=== PATIENT | female | born 1960 | race Caucasian/White ===

== ENCOUNTER 2018-10-23 01:39 | Outpatient (CLI) | payer BC, SELFPAY ==
[2018-10-23 08:45] LABS: Hemoglobin A1C 5.6 % (4.5-6.2)
[2018-10-23 08:50] LABS: Abs Immature Grans 0.01 k/cumm (0.0-0.09); Absolute Basophil Count 0.02 k/cumm (0.0-0.2); Absolute Eosinophil Count 0.15 k/cumm (0.0-0.7); Absolute Lymphocyte Count 1.31 k/cumm (1.2-3.4); Absolute Monocyte Count 0.26 k/cumm (0.11-0.7); Absolute Neutrophil Count 2.44 k/cumm (1.2-6.7); Basophils % 0.5; Eosinophils % 3.6; HCT 43.5 % (36.0-46.0); HGB 14.9 g/dL (12.0-15.5); Immature Grans % 0.2; Lymphocytes % 31.3; Mean Corp. HGB Concentration 34.3 g/dL (32.0-36.0); Mean Corpuscular Hemoglobin 29.9 pg (27.0-33.0); Mean Corpuscular Volume 87.3 fL (80-95); Mean Platelet Volume 10.7 fL (8.0-11.0); Monocytes % 6.2; Neutrophils % 58.2; Platelet Count 168 x1000/uL (130-400); RBC 4.98 m/cumm (4.00-5.20); RBC Distribution Width 13.4 % (11.7-14.6); White Blood Cell Count 4.19 k/cumm (4.4-10.8)
[2018-10-23 10:04] LABS: ALT 44 U/L (12-78); AST 19 U/L (15-37); Albumin 4.2 g/dL (3.4-5.0); Alkaline Phosphatase 73 U/L (46-116); BUN 30 mg/dL (7-18); Bilirubin, Total 0.5 mg/dL (0.2-1.0); CREATININE 0.85 mg/dL (0.55-1.02); Chloride 104 mmol/L (98-107); Glucose 108 mg/dL (70-100); Potassium 4.3 mmol/L (3.5-5.1); Sodium 140 mmol/L (136-145); TSH (W/Ref FT4) 2.37 uIU/mL (0.358-3.74); Total Protein 7.4 g/dL (6.4-8.2)
[2018-10-25 05:22] LABS: Vitamin D 25 Total 83.3 ng/ml (30-100)
== END 2018-10-23 01:59 ==
PROVIDERS: PCP Family Medicine; Visit Provider Family Medicine
DX: R63.5 Abnormal weight gain (principal); R53.83 Other fatigue; E78.5 Hyperlipidemia, unspecified; Z00.00 Encounter for general adult medical examination without abnormal findings
CPT/HCPCS: 36415; 80053; 82306; 83036; 84443; 85025

== ENCOUNTER 2018-11-20 00:18 | Outpatient (CLI) | payer BC, SELFPAY ==
--- NOTE | 2018-11-20 07:57 | DI.MAMMO_ITS ---
SYMPTOM/DIAGNOSIS: SCREENING, Z12.31 MAMMOGRAMS; Mammograms were interpreted according to the usual protocol including computer analysis with CAD system, tomosynthesis and C view imaging. Comparison is made with prior examinations. Breast density, category B. No suspicious masses or microcalcifications are seen. There has been no significant change compared to the prior examinations. IMPRESSION: No evidence for malignancy, category 1. Yearly mammography is recommended. [facility] ASSESSMENT OF FINDINGS: Negative. Category 1. Patient will receive a letter notifying them of these results. BI-RADS category B. There are scattered areas of fibroglandular density.
== END 2018-11-20 00:38 ==
PROVIDERS: PCP Family Medicine; Visit Provider Family Medicine
DX: Z12.31 Encounter for screening mammogram for malignant neoplasm of breast (principal)
CPT/HCPCS: 77063; 77067

== ENCOUNTER 2020-08-27 15:21 | Outpatient (REF) | payer BC, SELFPAY ==
[2020-08-28 13:51] LABS: COVID-19 RT-PCR UVMMC Result Negative (Negative)
== END 2020-08-27 15:22 | disposition home or self-care (01) ==
LOC: NCHCN 15:21
PROVIDERS: PCP Family Medicine; Visit Provider Family Medicine
DX: Z20.822 Contact with and (suspected) exposure to COVID-19 (principal)
CPT/HCPCS: U0003

== ENCOUNTER 2020-11-02 19:12 | Outpatient (REF) | payer BC, SELFPAY ==
[2020-11-04 12:30] LABS: Lyme Ab w Rflx to Lyme Confirm Negative (Negative)
[2020-11-04 22:57] LABS: Anaplasma phagocytophilum Negative (Negative); B. miyamotoi PCR Negative (Negative); Babesia divergens/MO-1 Negative (Negative); Babesia duncani Negative (Negative); Babesia microti Negative (Negative); Ehrlichia chaffeensis Negative (Negative); Ehrlichia ewingii/canis Negative (Negative); Ehrlichia muris eauclairensis Negative (Negative)
== END 2020-11-02 19:13 | disposition home or self-care (01) ==
LOC: NCHCN 19:12
PROVIDERS: PCP Family Medicine; Visit Provider Family Medicine
DX: W57.XXXA Bitten or stung by nonvenomous insect and other nonvenomous arthropods, initial encounter (principal); T14.8XXA Other injury of unspecified body region, initial encounter
CPT/HCPCS: 87798; 86618

== ENCOUNTER 2022-02-02 19:01 | Outpatient (REF) | payer BC, SELFPAY ==
[2022-02-02 18:20] LABS: ALT 35 U/L (14-59); AST 20 U/L (15-37); Albumin 4.3 g/dL (3.4-5.0); Alkaline Phosphatase 72 U/L (46-116); Anion Gap 9.8 mmol/L (3-11); BUN 23 mg/dL (7-18); Bilirubin, Total 0.7 mg/dL (0.2-1.0); CO2 27.2 mmol/L (21.0-32.0); CREATININE 0.7 mg/dL (0.55-1.02); Calcium 9.2 mg/dL (8.5-10.1); Calculated LDL 177 mg/dL (<100); Chloride 107 mmol/L (98-107); Cholesterol 292 mg/dL (<200); Glucose 115 mg/dL (74-106); HDL Cholesterol 97 mg/dL (40-60); Potassium 4.4 mmol/L (3.5-5.1); Sodium 144 mmol/L (136-145); Total Protein 7.2 g/dL (6.4-8.2); Triglyceride 93 mg/dL (<150)
[2022-02-02 18:22] LABS: Hemoglobin A1C 5.6 % (<5.7)
[2022-02-03 04:49] LABS: Vitamin D 25 Total 65.6 ng/mL (30-100)
== END 2022-02-02 19:02 | disposition home or self-care (01) ==
LOC: NCHCN 19:01
PROVIDERS: PCP Family Medicine; Visit Provider Family Medicine
DX: Z00.00 Encounter for general adult medical examination without abnormal findings (principal); R53.83 Other fatigue; E78.5 Hyperlipidemia, unspecified
CPT/HCPCS: 80053; 80061; 82306; 83036

== ENCOUNTER → 2022-03-25 00:34 | Outpatient (CLI) | payer BC, SELFPAY ==
--- NOTE | 2022-03-25 07:30 | DI.MAMMO_ITS ---
Exam(s) MAMMO SCREENING EXAM: MAMMO SCREENING CLINICAL HISTORY: SCREENING, Z12.31 TECHNIQUE: Mammograms were interpreted according to the usual protocol including computer analysis w [email or web address] CAD system, tomosynthesis and C-view imaging. COMPARISON: FINDINGS: The breasts are of moderate density with fairly symmetrical distribution of fibroglandular tissue. N o dominant mass or clumped microcalcification is identified in either breast. Current examination is compared with previous examinations including October 2018 and there has been no gross interval change i n appearance in comparison with the prior studies. IMPRESSION: No specific evidence of malignancy at this time. Routine screening examinations are suggested at ye khai intervals in this age group according to the ACS ACR guidelines. BI-RADS Category 1 - Negative Breast Density - Category B - Scattered areas of fibroglandular density
== END ==
PROVIDERS: PCP Family Medicine; Visit Provider Family Medicine
DX: Z12.31 Encounter for screening mammogram for malignant neoplasm of breast (principal)
CPT/HCPCS: 77063; 77067

== ENCOUNTER 2022-12-08 08:20 | Day surgery (SDC) | payer BC, SELFPAY ==
--- NOTE | 2022-12-07 19:20 | W.PM.DSUDISC ---
Date of service: 12/08/22 Time of Service: 11:54 Discharge Plan Disposition Patient Disposition: Home Condition: Good Discharge Details Reason For Visit: Screening colonoscopy Attending Provider: Anthony Blackmon Primary Care Provider: Ingrid Avalos Home Meds and New Rx's Prescriptions: Continued L-Glutamine 500 mg capsule 500 mg PO DAILY chromium picolinate 200 mcg tablet 200 mcg PO DAILY vitamin B complex [B Complex-Vitamin B12] Tablet 1 tab PO DAILY cod liver oil Capsule 1 cap PO DAILY magnesium oxide 500 mg capsule 500 mg PO DAILY Frank's wort 300 mg capsule 300 mg PO DAILY ashwagandha root extract 300 mg capsule 300 mg PO DAILY evening primrose oil 500 mg capsule 500 mg PO TID Rx Instructions: give with meal/snack 5-hydroxytryptophan (5-HTP) [5-HTP] 100 mg capsule 200 mg PO BID latanoprost 2.5 ML drops 1 drp OU DAILY brimonidine-timolol [Combigan] 5 ML drops 1 drp OD BID Discontinued bisacodyl [Dulcolax (bisacodyl)] 5 mg tablet,delayed release (DR/EC) 5 mg PO ONCE Qty: 4 0RF Rx Instructions: Take per colonoscopy instructions provided by ordering providers office polyethylene glycol 3350 17 gram/dose powder 17 g PO ONCE Qty: 238 0RF Rx Instructions: Take per colonoscopy instructions provided by ordering providers office Discharge Instructions Additional Instructions: Carmelita, we were able to complete your colonoscopy today without any problems. The quality of the prep was excellent. We had great visualization. I did not see any signs of any abnormalities. You should consider another colonoscopy in 10 years 1. If tolerated, consume a soft, low fiber diet for 1-2 days. 2[address] Do not drive, drink alcohol, operate machinery, make critical decisions, or do activities that require coordination or balance for 24 hours. 3. Because air was put into your colon during the procedure, expelling air from your rectum (passing gas or farting) is normal. 4. You may not have a bowel movement for 1-3 days because of the colonoscopy prep. This is normal. 5. Go directly to the emergency room if you notice any of the following: Develop chills (warm to touch), or if you have a thermometer and your temperature is above 101 Difficulty breathing or difficultly swallowing Persistent vomiting Severe abdominal pain, other than gas cramps Severe chest pain Black, tarry stools Any bleeding ? exceeding one tablespoon 6. Call your physician if the site where your intravenous was started becomes red, swollen, painful, and warm to touch. 7. Your physician has reviewed your pre-procedure medications. Please continue to take those medications as previously ordered. You will be given specific information/education regarding any changes to your medications before leaving. Activity:: Activity as Tolerated Diet:: As Tolerated Discharge Orders Discharge Orders: Discharge Order (Routine); Ordered 12/07/22 Ordered By: Anthony Blackmon DS: Diagnosis Discharge Diagnosis (1) Screening for colon cancer: Status: Acute Asessment and Plan: Negative screening colonoscopy
--- NOTE | 2022-12-07 19:22 | W.COLOREPORT ---
Date of service: 12/08/22 Time of Service: 11:55 Colonoscopy Report Date of procedure: 12/08/22 Pre-op diagnosis general: Screening colonoscopy Post-op diagnosis procedure note: other (Negative screening colonoscopy) Procedure: Colonoscopy Surgeon: Anthony Blackmon Anesthesia Type: General:No Airway Estimated blood loss (mL): 0 Pathology: none sent Complications: None Disposition: same day Indications: Reena is a 62 year old woman who needs a screening colonoscopy Prep: Miralax/Dulcolax Procedure Start Time: 11:24 Procedure End Time: 11:39 Retraction Time: 11 Findings: Negative screening colonoscopy Procedure Description: After the induction of monitored anesthetic care, and with the patient in left lateral decubitus position, I began by performing an external anorectal exam.? Perineum and skin were normal, as was the anal verge.? There were no external hemorrhoids.? Next, I performed a digital rectal exam.? I did not appreciate any abnormal findings.? Next, I advanced a colonoscope into the rectal vault.? I performed retroflexion.? This appeared normal.? Using insufflation, I then advanced the colonoscope beyond the rectal folds and into the sigmoid colon before advancing towards the cecum.? The quality of the prep was excellent.? The scope was noted to be in the cecum by identification of the ileocecal valve and appendiceal orifice.? I then began withdrawing the colonoscope using repeated irrigation as necessary for full evaluation of the colonic mucosa. ?Once the scope was withdrawn to the level of the rectum, great care was taken to examine portions of the rectal folds.? I did not see any abnormalities during the colonoscopy. Finally, the scope was withdrawn and the patient was brought to the same-day surgery recovery unit as the anesthetic wore off. ?The findings and instructions were shared with the patient prior to discharge.
[2022-12-08 09:34] VITALS: BP 133/86; PULSE 91; RESP 18; TEMP 36.3; O2SAT 98
--- NOTE | 2022-12-08 09:39 | W.ANESPRE ---
General Info Date of Service Date Performed: 12/08/22 Height: 5 ft 6 in Weight: 81.647 kg Body Mass Index (BMI): 29.0 Surgical Procedure: Operation Date: 12/08/22 09:50 Proposed Procedure Side Surgeon vinayak Blackmon MD Meds Allergies and Home Medications Allergies Allergy/AdvReac Type Severity Reaction Status Date / Time No Known Allergies Allergy Unverified 12/07/22 11:20 Home Medication Medication Instructions Recorded brimonidine 0.2 %-timolol 0.5 % 1 drp OD BID 12/02/13 eye drops (Combigan) latanoprost 0.005 % eye drops 1 drp OU DAILY 12/02/13 5-hydroxytryptophan (5-HTP) 100 mg 200 mg PO BID 04/26/22 capsule (5-HTP) [place]'s wort 300 mg capsule 300 mg PO DAILY 04/26/22 ashwagandha root extract 300 mg 300 mg PO DAILY 04/26/22 capsule chromium picolinate 200 mcg tablet 200 mcg PO DAILY 04/26/22 cod liver oil 1 cap PO DAILY 04/26/22 evening primrose oil 500 mg capsule 500 mg PO TID 04/26/22 glutamine 500 mg capsule 500 mg PO DAILY 04/26/22 (L-Glutamine) magnesium oxide 500 mg capsule 500 mg PO DAILY 04/26/22 vitamin B complex (B 1 tab PO DAILY 04/26/22 Complex-Vitamin B12 tablet) Current Visit Medications: Current Medications Generic Name Dose Route Start Last Admin Trade Name Freq PRN Reason Stop Dose Admin Hyoscyamine Sulfate 0.125 mg 12/07/22 19:23 Hyoscyamine 0.125 Mg Sl/Oral/Chew SL 01/06/23 19:22 DIRECTED PRN Ringer's Solution 1,000 mls @ 80 mls/hr 12/08/22 06:00 IV 01/06/23 23:59 INFUSION MELIDA IV Miscellaneous Supplies 1 each 12/08/22 06:00 Iv Access IV 01/06/23 23:59 DIRECTED MELIDA Ondansetron HCl 4 mg 12/07/22 19:23 Ondansetron 4 Mg/2 Ml Vial IVP 01/06/23 19:22 Q4H PRN PRN Nausea / Vomiting Sodium Chloride 0 ml 12/08/22 06:00 Normal Saline Flush 10 Ml Syr IV 01/06/23 23:59 PRN PRN Sodium Chloride 0 ml 12/08/22 06:00 Normal Saline 10 Ml Vial IJ 01/06/23 23:59 DIRECTED PRN Sterile Water 0 ml 12/08/22 06:00 Water,Injection,Sterile 10 Ml Vial IJ 01/06/23 23:59 DIRECTED PRN PFSH Active Problems Active Problems: Problem Status Onset Code Glaucoma H40.9 Fatigue R53.83 Screening for colon cancer Z12.11 Medical History Medical History Hyperlipidemia Multiple nevi Sebaceous cyst Stressful life event affecting family Urge incontinence Weight gain Surgical History Surgical History H/O: hysterectomy History of colonoscopy (~2011) Tobacco Smoking/Tobacco Use Status: Never Alcohol Alcohol Intake: never Substance Use Substance use: Never Substance use type: does not use Vital Signs and Lab Results Vital Signs Most Recent Vital Signs in EMR: Most Recent Vital Signs Temp Pulse Resp BP Pulse Ox 36.3 C L 91 H 18 133/86 98 12/08/22 09:34 12/08/22 09:34 12/08/22 09:34 12/08/22 09:34 12/08/22 09:34 Lab Results Blood Type / Crossmatch: No Data to Display Complete Blood Count: No Data to Display Complete Metabolic Panel: No Data to Display Liver Function Panel: No Data to Display Coagulation Panel: No Data to Display Cardiac Panel: No Data to Display Arterial Blood Gas: No Data to Display Venous Blood Gas: No Data to Display Pancreas Panel: No Data to Display Thyroid Panel: No Data to Display Infectious Disease: No Data to Display Blood Cultures: No Data to Display Toxicology Panel: No Data to Display Anesthesia Assessment and Plan Anesthesia History Personal History: No History of Anesthesia Complications Family History: No Family History of Anesthesia Complications Exercise Tolerance Exercise Tolerance: Metabolic Equivalents>4 Cardiac & Pulmonary Exam Cardiac Exam: Normal S1/S2 Heart Sounds Pulmonary Exam: Clear Bilateral Breath Sounds Implantable Cardiac Device Does patient have a Pacemaker or an ICD?: No Airway Exam Known Difficult Airway: No Mallampati Class: 3 Mouth Opening: Normal (> 3cm) Thyromental Distance: Greater than 3 cm Neck Range of Motion: Full ROM Neck Circumference: Normal Teeth Condition: Normal Dentition ASA Classification ASA Score: ASA 2 Emergency Case?: No NPO Status NPO Status: NPO Clears >2 hours, Solids >8 hours Anesthesia Plan Resuscitation Status: Full Code Anesthesia Technique: General Anesthesia Airway Planned: Natural Airway Monitors Used: Standard Monitors Preoperative Comments:: 62 yo female for colo. Sig PMHx: never smoker, glaucoma,
[2022-12-08 09:44] VITALS: BMI 29.0
[2022-12-08] MEDS: Lactated Ringers 1,000 ML 80 ML IV (09:56)
[2022-12-08 11:52] VITALS: BP 142/112; PULSE 77; RESP 16; TEMP 36.1; O2SAT 98
[2022-12-08 12:35] VITALS: BP 140/80; PULSE 82; RESP 18; TEMP 36.4; O2SAT 98
--- NOTE | 2022-12-08 12:40 | W.ANESPOSTOP ---
Postoperative Evaluation Date, Time and Location Date Performed: 12/08/22 Time Performed: 11:59 Patient Location: Day Surgery Unit Vital Signs Most Recent Imported Vital Signs: Most Recent Vital Signs Temp Pulse Resp BP Pulse Ox 36.1 C L 77 16 142/112 H 98 12/08/22 11:52 12/08/22 11:52 12/08/22 11:52 12/08/22 11:52 12/08/22 11:52 Pain Score Most Recent Pain Score: Most Recent Pain Score Pain Level 0 12/08/22 11:52 Assessment Mental Status: Awake (Alert & Oriented to Patient Baseline) Airway and Respiratory Function: Patent airway with normal (patient baseline) respiratory exam Cardiovascular Function: Hemodynamically Stable Hydration Status: Adequately Hydrated Nausea & Vomiting: No Nausea or Vomiting Pain: Pt. Denies Any Pain Peripheral Nerve Block: Patient did not receive a nerve block
[2022-12-08] MEDS: Hyoscyamine 0.125 MG SL/ORAL/CHEW SL (12:41)
== END 2022-12-08 13:00 | disposition home or self-care (01) ==
PROVIDERS: PCP Family Medicine; Visit Provider Surgery
PROC: 0DJD8ZZ Inspection of Lower Intestinal Tract, Via Natural or Artificial Opening Endoscopic (ICD-10-PCS; CPT 45378; principal; 2022-12-08 09:45)
DX: Z12.11 Encounter for screening for malignant neoplasm of colon (principal); E78.5 Hyperlipidemia, unspecified; H40.9 Unspecified glaucoma
CPT/HCPCS: 45378; J2001; J3490

== ENCOUNTER 2023-07-18 06:49 | Emergency (ER) | payer BC, SELFPAY ==
[2023-07-18] VITALS (30 sets, daily range): BP systolic 111–143; BP diastolic 55–96; PULSE 55–105; RESP 11–24; TEMP 36.9; O2SAT 98–100
[2023-07-18] MEDS: Ondansetron O.D.T. 4 MG TABEF (07:07)
--- NOTE | 2023-07-18 07:15 | RT.EKG_ITS ---
APPROVED REPORT Exam: Resting ECG Reason for Exam: lightheaded Patient Location: E HR:68 bpm ECG Measurements Heart Rate 68 AXIS DE 223 P -48 QRSd 85 QRS 61 QT 433 T 56 QTc 462 Conclusion Sinus or ectopic atrial rhythm...P axis (-45,135) Prolonged DE interval...DE >220, V-rate 50- 90 sinus rhythm, normal axis, normal intervals, non ischemic
--- NOTE | 2023-07-18 07:22 | ED.GENADUL_ITS ---
HPI General Date/Time Provider Initiated Documentation: 07/18/23 07:04 . HPI Narrative: 63-year-old female presents with chills lightheadedness and nausea after having a large loose bowel movement this morning, endorses that her bowel movement was very dark. Denies chest pain shortness of breath cough fevers or vomiting. No abdominal pain. Recent screening colonoscopy negative. Has been under a lot of stress socially, safe at home lives with teenage daughter. Related Data Home Medications Medication Instructions Recorded Confirmed brimonidine 0.2 %-timolol 0.5 % 1 drp OD BID 12/02/13 07/18/23 eye drops (Combigan) latanoprost 0.005 % eye drops 1 drp OU DAILY 12/02/13 07/18/23 5-hydroxytryptophan (5-HTP) 100 mg 200 mg PO BID 04/26/22 12/08/22 capsule (5-HTP) Frank's wort 300 mg capsule 300 mg PO DAILY 04/26/22 12/08/22 ashwagandha root extract 300 mg 300 mg PO DAILY 04/26/22 12/08/22 capsule chromium picolinate 200 mcg tablet 200 mcg PO DAILY 04/26/22 12/08/22 cod liver oil 1 cap PO DAILY 04/26/22 12/08/22 evening primrose oil 500 mg capsule 500 mg PO TID 04/26/22 12/08/22 glutamine 500 mg capsule 500 mg PO DAILY 04/26/22 12/08/22 (L-Glutamine) magnesium oxide 500 mg capsule 500 mg PO DAILY 04/26/22 12/08/22 vitamin B complex (B 1 tab PO DAILY 04/26/22 12/08/22 Complex-Vitamin B12 tablet) Allergies Allergy/AdvReac Type Severity Reaction Status Date / Time No Known Allergies Allergy Unverified 07/18/23 07:00 General Stated Complaint: Nausea/Vomit/Diar CRIS: 3 Review of Systems Narrative: Review of Systems Constitutional: Fatigue, lightheadedness Eyes: negative ENT: negative Cardiovascular: negative Respiratory: negative Gastrointestinal: Nausea, diarrhea, dark stool : negative Musculoskeletal: negative Skin: negative Neurologic: negative Psych: negative Exam Narrative Exam Narrative: Physical Examination General: Fatigued appearing HEENT: normocephalic, atraumatic; PERRL, EOM intact, dry oral mucosa, slight conjunctival pallor Neck: supple, trachea midline; full ROM Chest: normal to inspection Respiratory: normal respiratory effort, speaking in full sentences, clear to auscultation, no wheezing, rales or rhonchi Cardiac: regular rate, regular rhythm, S1S2 intact, no murmurs rubs or gallops GI: abdomen soft, non-tender, non-distended; no palpable mass or hepatosplenomegaly Skin: Pale, no lesions, rashes or trauma appreciated Neuro: AAOx3, normal speech, moving all extremities Psych: Appropriate mood and affect Course Vital Signs Vital signs: Vital Signs Temperature 36.9 C 07/18/23 06:56 Pulse 56 L 07/18/23 06:56 Respiratory Rate 16 07/18/23 06:56 Blood Pressure 117/57 L 07/18/23 06:56 Pulse Oximetry 100 07/18/23 06:56 Temperature 36.9 C 07/18/23 06:56 Temperature Source Oral 07/18/23 06:56 Pulse 56 L 07/18/23 06:56 Respiratory Rate 16 07/18/23 06:56 Blood Pressure 117/57 L 07/18/23 06:56 Blood Pressure Position Sitting 07/18/23 06:56 Pulse Oximetry 100 07/18/23 06:56 Oxygen Delivery Method Room Air 07/18/23 06:56 Oxygen Flow Rate 0 07/18/23 06:56 Medical Decision Making 64-year-old female presents with lightheadedness and nausea after having a large loose dark bowel movement at home, no abdominal pain, afebrile, nonperitoneal, appears fatigued, slightly pale conjunctiva dry oral mucosa, pallor, normotensive, slight bradycardia, consider viral gastroenteritis versus viral syndrome such as influenza or COVID-19, must also consider vasovagal episode in the setting of large bowel movement, given description of dark loose stool consider upper GI bleed, must also consider electrolyte derangement versus dehydration versus anemia. Low suspicion for pneumonia. Must also consider colitis versus enteritis versus appendicitis versus diverticulitis versus less likely UTI given no urinary symptoms. Low suspicion for ACS PE or aortic pathology given history and physical. Will place line provide fluids antiemetics, pantoprazole and famotidine, will perform bedside guaiac, CT abdomen pelvis with contrast chest x-ray flu COVID swab EKG close reassessment of symptoms. 19: 34 patient resting notably no acute distress. Guaiac negative. External hemorrhoid nonthrombosed nonbleeding on examination. 10: 25 patient resting comfortably feeling much better after fluids and meds. Labs and imaging largely unremarkable. Home care instructions return precautions given. Consider resolving mild dehydration versus vasovagal episode Quality:SDOH Health Related Social Needs: No Data to Display PFSH All Active Problems (Updated 07/18/23 @ 10:26 by Chun Stewart MD) Dehydration (Acute) Glaucoma (Chronic) Fatigue (Acute) Screening for colon cancer (Acute) Medical History Hyperlipidemia Multiple nevi Weight gain Urge incontinence Sebaceous cyst Stressful life event affecting family Surgical History (Updated 12/08/22 @ 15:46 by Pamella Mcfdaden) Normal colonoscopy (~12/08/22) History of colonoscopy (~2011) H/O: hysterectomy Social History Smoking/Tobacco Use Status: Never Smoking risk assessment performed?: Yes Alcohol Intake: never Drug use: Never Substance use type: does not use Housing: house Do you feel safe at home: Yes Do you feel safe in your relationship?: Yes Discharge Plan Disposition Patient Disposition: Home Condition: Improving Discharge Details Chief Complaint: Nausea/Vomit/Diar Clinical Impression: Dehydration Primary Care Provider: Ingrid Avalos ED Provider: Chun Stewart Home Meds and New Rx's Prescriptions: No Action L-Glutamine 500 mg capsule 500 mg PO DAILY chromium picolinate 200 mcg tablet 200 mcg PO DAILY vitamin B complex [B Complex-Vitamin B12] Tablet 1 tab PO DAILY cod liver oil Capsule 1 cap PO DAILY magnesium oxide 500 mg capsule 500 mg PO DAILY Frank's wort 300 mg capsule 300 mg PO DAILY ashwagandha root extract 300 mg capsule 300 mg PO DAILY evening primrose oil 500 mg capsule 500 mg PO TID Rx Instructions: give with meal/snack 5-hydroxytryptophan (5-HTP) [5-HTP] 100 mg capsule 200 mg PO BID latanoprost 2.5 ML drops 1 drp OU DAILY brimonidine-timolol [Combigan] 5 ML drops 1 drp OD BID Discharge Instructions Instructions: Dehydration (ED)
[2023-07-18 07:44] LABS: Abs Immature Grans 0.03 10^3/uL (0.0-0.06); Absolute Basophil Count 0.05 10^3/uL (0.0-0.2); Absolute Eosinophil Count 0.06 10^3/uL (0.0-0.7); Absolute Lymphocyte Count 1.05 10^3/uL (1.2-3.4); Absolute Monocyte Count 0.36 10^3/uL (0.1-0.8); Absolute Neutrophil Count 8.29 10^3/uL (1.2-6.7); Basophils % 0.5; Eosinophils % 0.6; HCT 45.1 % (36.0-46.0); HGB 15.5 g/dL (11.2-15.7); Immature Grans % 0.3; Lymphocytes % 10.7; MCH 30.3 pg (27.0-33.0); MCHC 34.4 % (32.0-36.0); MCV 88 fL (80-95); MPV 9.9 fL (8.0-11.0); Monocytes % 3.7; Neutrophils % 84.2; Platelet Count 194 10^3/uL (130-400); RBC 5.11 10^6/uL (3.93-5.22); RDW 12.5 % (11.7-14.6); RDW-SD 40.4 fL; WBC 9.84 10^3/uL (4.4-10.8)
[2023-07-18] MEDS: Normal Saline 1,000 ML 1000 ML IV (07:52)
[2023-07-18] MEDS: Famotidine 20 MG/2 ML VIAL IVP (07:53)
[2023-07-18] MEDS: Pantoprazole 40 MG VIAL IVP (07:53)
[2023-07-18 08:04] LABS: ALT 37 U/L (14-59); AST 14 U/L (15-37); Albumin 4.3 g/dL (3.4-5.0); Alkaline Phosphatase 68 U/L (46-116); Anion Gap 10.7 mmol/L (3-11); BUN 25 mg/dL (7-18); Bilirubin, Total 0.5 mg/dL (0.2-1.0); CO2 26.3 mmol/L (21.0-32.0); CREATININE 0.9 mg/dL (0.55-1.02); Calcium 9.4 mg/dL (8.5-10.1); Chloride 104 mmol/L (98-107); Estimated GFR 72.28 (mL/min/1.73m2); Glucose 145 mg/dL (74-106); Lipase 40 U/L (16-77); Potassium 3.7 mmol/L (3.5-5.1); Sodium 141 mmol/L (136-145); Total Protein 7.9 g/dL (6.4-8.2)
[2023-07-18 08:24] LABS: PTT Activated 20.1 sec (23.6-32.8); Prothrombin Time 10.5 sec (9.1-11.1)
[2023-07-18] MEDS: Normal Saline - Diluent 50 ML VIAL IJ (08:35)
[2023-07-18] MEDS: Omnipaque 350 MG/ML 500 ML BTL-Imaging package 100 ML IJ (08:37)
--- NOTE | 2023-07-18 08:45 | DI.CT_ITS ---
Exam(s) CT ABDOMEN PELVIS W EXAM: CT ABDOMEN PELVIS W CLINICAL HISTORY: diarrhea, lightheaded, nausea TECHNIQUE: Imaging Protocol: Axial computed tomography images with coronal and sagittal reformatted images were created and reviewed CONTRAST MATERIAL: Intravenous: Omnipaque 350 Contrast volume:100 mL Oral: No COMPARISON: There are no priors for comparison. FINDINGS: ABDOMEN: Lung Bases: Normal where visualized. Liver: Normal density. No measurable mass. Portal, Superior Mesenteric, and Splenic Veins: Unremarkable. Gallbladder and Biliary Tract: No radiodense calculus or dilation. Pancreas: Normal density, no abnormal calcifications or inflammatory process. Spleen: Normal. Adrenals: No masses seen. Kidneys: Normal size, contour and axis. No radiodense stones or obstructive uropathy. No masses seen. Abdominal Aorta: Abdominal portion non-dilated. Atherosclerosis. Bowel: No obstruction or bowel wall thickening. There is no evidence of appendicitis. Peritoneal Cavity: No ascites, collection or mesenteric inflammatory response. No free air. Lymph Nodes: Within normal limits. Bones: Within normal limits for the patient's age. There is a bone island in the right iliac bone. Soft Tissues: Unremarkable. PELVIS: Bladder: Symmetric distention, no gross wall thickening. Reproductive Organs: Status post hysterectomy. Lymph Nodes: Within normal limits. Bones: Within normal limits for the patient's age. IMPRESSION: 1. No acute abdominal pelvic process to account for the symptoms. 2. Findings were discussed with the emergency department at 9:28 a.m. on 07/18/2023. RADIATION DOSE DELIVERED: 1,044.57mGy.cm Total DLP DATA REPOSITORY: All CT scans at this facility are submitted to the National Radiology Data Registry (NRDR) Dose Index Registry (DIR) with the [employer] (A[employer]). RADIATION OPTIMIZATION: All CT scans at this facility use at least one of these dose optimization te chniques: automated exposure control; mA and/or kV adjustment per patient size (includes targeted exa ms where dose is matched to clinical indication); or iterative reconstruction.
--- NOTE | 2023-07-18 08:59 | DI.RAD_ITS ---
Exam(s) XR CHEST 2V PA LATERAL EXAM: XR CHEST 2V PA LATERAL CLINICAL HISTORY: fatigue, lightheaded, nausea TECHNIQUE: 2D digital imaging was performed of the chest. Two images were obtained. PA and lateral views were obtained. COMPARISON: CR CHEST 2 VIEWS PA,LAT from 02/09/2012 FINDINGS: MEDIASTINUM: Normal. HEART: Normal. PULMONARY VASCULATURE: Normal. LUNGS: Clear. PLEURAL SPACE: No pleural effusion or pneumothorax. BONE:Within normal limits for the patient's age. OTHER FINDINGS:Normal. IMPRESSION: No acute pulmonary findings. DATA REPOSITORY: RADIATION DOSE DELIVERED:
[2023-07-18 10:02] LABS: Bilirubin Negative (Negative); Blood Negative (Negative); Clarity Clear (Clear); Glucose Negative (Negative); Ketones Negative (Negative); Leukocyte Esterase Negative (Negative); Nitrite Negative (Negative); Specific Gravity <= 1.005 (1.005-1.025); Urobilinogen 0.2 mg/dL (Up to 0.2); pH 5.5 (5-8)
== END 2023-07-18 10:43 | disposition home or self-care (01) ==
PROVIDERS: Emergency Provider Emergency Medicine; PCP Family Medicine
DX: R68.83 Chills (without fever) (principal); R11.10 Vomiting, unspecified; R53.83 Other fatigue; E86.0 Dehydration; Z11.52 Encounter for screening for COVID-19
CPT/HCPCS: 80053; 83690; 86850; 86900; 86901; 87426; 93005; 96361; 96374; 96375; 99285; 71046; 74177; 81003; 85025; 85610; 85730; 93010; 99284; J2470

== ENCOUNTER 2023-10-29 10:55 | Emergency (ER) | payer BC, SELFPAY ==
[2023-10-29 10:56] VITALS: BP 100/82; PULSE 98; RESP 15; TEMP 36.3; O2SAT 99
--- NOTE | 2023-10-29 11:00 | DI.RAD_ITS ---
Exam(s) XR FOOT RT COMPLETE EXAM: XR FOOT RT COMPLETE CLINICAL HISTORY: pain s/p fall 2 days ago. TECHNIQUE: 2D digital imaging was performed. Three views. COMPARISON: No exams were available for comparison FINDINGS: BONES: Mildly displaced fracture noted at the base of the 5th metatarsal. Fracture extends to the ar ticular surface however there is no significant widening. No additional fractures. No bony destruct musa lesion is seen. Heel spurs. JOINTS: No dislocation present. SOFT TISSUE: Swelling. IMPRESSION: Mildly displaced fracture at the base of the 5th metatarsal. DATA REPOSITORY: RADIATION DOSE DELIVERED:
--- NOTE | 2023-10-29 11:00 | DI.RAD_ITS ---
Exam(s) XR ANKLE RT COMPLETE EXAM: XR ANKLE RT COMPLETE CLINICAL HISTORY: pain s/p fall 2 days ago. TECHNIQUE: 2D digital imaging was performed. Three views. COMPARISON: No exams were available for comparison FINDINGS: BONE: Mildly displaced fracture at the base of the 5th metatarsal. No bony destructive lesion is see n. Heel spurs. JOINTS: The ankle mortise is normally aligned. SOFT TISSUE: Swelling greater laterally. IMPRESSION: Mildly displaced fracture at the base of the 5th metatarsal. DATA REPOSITORY: RADIATION DOSE DELIVERED:
--- NOTE | 2023-10-29 11:08 | ED.GENADUL_ITS ---
Discharge Plan Disposition Patient Disposition: Home Condition: Stable Discharge Details Clinical Impression: Foot fracture, right Primary Care Provider: Ingrid Avalos ED Provider: Titi Chavarria Home Meds and New Rx's Prescriptions: Continued L-Glutamine 500 mg capsule 500 mg PO DAILY chromium picolinate 200 mcg tablet 200 mcg PO DAILY vitamin B complex [B Complex-Vitamin B12] Tablet 1 tab PO DAILY cod liver oil Capsule 1 cap PO DAILY magnesium oxide 500 mg capsule 500 mg PO DAILY Frank's wort 300 mg capsule 300 mg PO DAILY ashwagandha root extract 300 mg capsule 300 mg PO DAILY evening primrose oil 500 mg capsule 500 mg PO TID Rx Instructions: give with meal/snack 5-hydroxytryptophan (5-HTP) [5-HTP] 100 mg capsule 200 mg PO BID latanoprost 2.5 ML drops 1 drp OU DAILY brimonidine-timolol [Combigan] 5 ML drops 1 drp OD BID Discharge Instructions Additional Instructions: Your x-ray shows you have a small break at the base of the fifth metatarsal in your foot Orthopedics to arrange for follow-up appointment Return to the emergency department if you have severe worsening pain or feel more ill. Referrals: Mauricio Mackay MD [ [facility] STAFF PHYSICIAN] - [facility] General Date/Time Provider Initiated Documentation: 10/29/23 10:59 . Limitations to Documentation: no limitations . Information obtained by: patient . History of Present Illness 63 year old F presents to the emergency department with the chief complaint of Right foot and ankle pain, described as moderate, Quality is described as aching, and is localized to the right and lower extremity. Patient reports no radiation. Patient started experiencing this day(s) (2) and it has been constant. No relieving factors improve symptom(s), No exacerbating factors reported . Patient notes no other symptoms.. Patient did receive the following treatments prior to arrival, none Related Data Home Medications Medication Instructions Recorded Confirmed brimonidine 0.2 %-timolol 0.5 % 1 drp OD BID 12/02/13 10/29/23 eye drops (Combigan) latanoprost 0.005 % eye drops 1 drp OU DAILY 12/02/13 10/29/23 5-hydroxytryptophan (5-HTP) 100 mg 200 mg PO BID 04/26/22 10/29/23 capsule (5-HTP) [place]'s wort 300 mg capsule 300 mg PO DAILY 04/26/22 10/29/23 ashwachardha root extract 300 mg 300 mg PO DAILY 04/26/22 10/29/23 capsule chromium picolinate 200 mcg tablet 200 mcg PO DAILY 04/26/22 10/29/23 cod liver oil 1 cap PO DAILY 04/26/22 10/29/23 evening primrose oil 500 mg capsule 500 mg PO TID 04/26/22 10/29/23 glutamine 500 mg capsule 500 mg PO DAILY 04/26/22 10/29/23 (L-Glutamine) magnesium oxide 500 mg capsule 500 mg PO DAILY 04/26/22 10/29/23 vitamin B complex (B 1 tab PO DAILY 04/26/22 10/29/23 Complex-Vitamin B12 tablet) Allergies Allergy/AdvReac Type Severity Reaction Status Date / Time No Known Allergies Allergy Unverified 10/29/23 11:01 General Stated Complaint: Orthopedic CRIS: 4 Review of Systems All systems reviewed & are unremarkable except as noted in HPI and below Constitutional Constitutional: Denies chills, Denies fever(s) and Denies weakness Cardiovascular Cardiovascular: Denies chest pain and Denies dyspnea Respiratory Respiratory: Denies cough and Denies dyspnea Gastrointestinal Gastrointestinal: Denies abdominal pain, Denies nausea and Denies vomiting Integumentary/Breasts Skin/Breast: Denies rash Neurologic Neurologic: Denies weakness Psychiatric Psychiatric: Denies depression Exam Const General: no acute distress Orientation: alert HENCT Head: normal to inspection Ears: external ears normal General nose exam: external nose normal Mouth: moist mucous membranes Eyes General: appearance normal, both eyes and all related structures Neck Neck: normal visual inspection Resp Effort & Inspection: normal respiratory effort and able to speak in complete sentences Cardio Rate: regular rate Skin General skin exam: no rashes or lesions noted Neuro General: patient alert and patient oriented x3 Extrem General: full ROM and capillary refill normal Psych Mental Status: mental status grossly normal Course Vital Signs Vital signs: Vital Signs Temperature 36.3 C L 10/29/23 10:56 Pulse 98 H 10/29/23 10:56 Respiratory Rate 15 10/29/23 10:56 Blood Pressure 100/82 10/29/23 10:56 Pulse Oximetry 99 10/29/23 10:56 Temperature 36.3 C L 10/29/23 10:56 Temperature Source Temporal Artery Scan 10/29/23 10:56 Pulse 98 H 10/29/23 10:56 Respiratory Rate 15 10/29/23 10:56 Respiratory Effort Normal 10/29/23 11:01 Blood Pressure 100/82 10/29/23 10:56 Blood Pressure Position Sitting 10/29/23 10:56 Pulse Oximetry 99 10/29/23 10:56 Oxygen Delivery Method Room Air 10/29/23 10:56 Oxygen Flow Rate 0 10/29/23 10:56 Pain Level 9 10/29/23 10:56 Medical Decision Making 63-year-old female comes in with right ankle and foot pain. She says this past Monday she was walking out of her house and missed a step and inverted her right ankle. She denies any her head or other injuries. She has had right lateral ankle and foot pain since so came here for an evaluation. She is able to bear weight but does hurt in the right foot when she does this. The right foot is bruised and swollen, she has full range of motion of the ankle, intact sensation and cap refill, has no tenderness in the knee, proximal to mid tib-fib, does have right lateral malleolus and right lateral foot tenderness, no palpable deformity. Will obtain x-rays of the ankle and foot to evaluate for fracture Patient stable, does have a minimally displaced fracture at the base of the fifth metatarsal, placed in a short walking boot and given crutches and advised to not bear weight until she follows up with Ortho. Return precautions given Differential Diagnosis Differential Diagnosis: Sprain, contusion, fracture Imaging Data Radiologic Study: Attestation: I personally reviewed and interpreted this imaging study as follows: Imaging: X-Ray Radiologist's impression: PROCEDURE INFORMATION: Exam: XR Right Ankle Exam date and time: 10/29/2023 11:29 AM Age: 63 years old Clinical indication: Pain; Ankle and foot; Right TECHNIQUE: Imaging protocol: Radiologic exam of the right ankle. Views: 3 or more views. COMPARISON: CR XR FOOT RT COMPLETE 10/29/2023 11:28 AM FINDINGS: Bones/joints: Minimally displaced intra-articular fracture of the base of the 5th metatarsal. Inferior calcaneal spur. Achilles enthesophyte. No ankle joint effusion. Soft tissues: There is mild soft swelling around the lateral malleolus. IMPRESSION: Minimally displaced fracture of the base of the 5th metatarsal bone. No other fractures. Radiologic Study #2: Attestation: I personally reviewed and interpreted this imaging study as follows: Imaging: X-Ray Radiologist's impression: PROCEDURE INFORMATION: Exam: XR Right Foot Exam date and time: 10/29/2023 11:28 AM Age: 63 years old Clinical indication: Pain; Ankle and foot; Right TECHNIQUE: Imaging protocol: Radiologic exam of the right foot. Views: 3 or more views. COMPARISON: No relevant prior studies available. FINDINGS: Bones/joints: There is a minimally displaced intra-articular fracture of the base of the 5th metatarsal bone. Achilles enthesophytes. Inferior calcaneal spur. Soft tissues: Soft swelling dorsal to the metatarsal bones. IMPRESSION: Minimally displaced intra-articular fracture of the base of the 5th metatarsal. Quality:SDOH Health Related Social Needs: No Data to Display PFSH All Active Problems (Updated 10/29/23 @ 12:26 by Titi Chavarria MD) Foot fracture, right (Acute) Glaucoma (Chronic) Fatigue (Acute) Screening for colon cancer (Acute) Medical History Hyperlipidemia Multiple nevi Weight gain Urge incontinence Sebaceous cyst Stressful life event affecting family Surgical History (Updated 12/08/22 @ 15:46 by Pamella Mcfadden) Normal colonoscopy (~12/08/22) History of colonoscopy (~2011) H/O: hysterectomy Social History Smoking/Tobacco Use Status: Never Smoking risk assessment performed?: Yes Alcohol Intake: never Drug use: Never Substance use type: does not use Housing: house Do you feel safe at home: Yes Do you feel safe in your relationship?: Yes
--- NOTE | 2023-10-29 12:07 | DI.VRAD_ITS ---
PROCEDURE INFORMATION: Exam: XR Right Foot Exam date and time: 10/29/2023 11:28 AM Age: 63 years old Clinical indication: Pain; Ankle and foot; Right TECHNIQUE: Imaging protocol: Radiologic exam of the right foot. Views: 3 or more views. COMPARISON: No relevant prior studies available. FINDINGS: Bones/joints: There is a minimally displaced intra-articular fracture of the base of the 5th metatarsal bone. Achilles enthesophytes. Inferior calcaneal spur. Soft tissues: Soft swelling dorsal to the metatarsal bones. IMPRESSION: Minimally displaced intra-articular fracture of the base of the 5th metatarsal. Dictated and Authenticated by: Rj Willams MD. Ordering:CAITLYN Walls MD
--- NOTE | 2023-10-29 12:08 | DI.VRAD_ITS ---
PROCEDURE INFORMATION: Exam: XR Right Ankle Exam date and time: 10/29/2023 11:29 AM Age: 63 years old Clinical indication: Pain; Ankle and foot; Right TECHNIQUE: Imaging protocol: Radiologic exam of the right ankle. Views: 3 or more views. COMPARISON: CR XR FOOT RT COMPLETE 10/29/2023 11:28 AM FINDINGS: Bones/joints: Minimally displaced intra-articular fracture of the base of the 5th metatarsal. Inferior calcaneal spur. Achilles enthesophyte. No ankle joint effusion. Soft tissues: There is mild soft swelling around the lateral malleolus. IMPRESSION: Minimally displaced fracture of the base of the 5th metatarsal bone. No other fractures. Dictated and Authenticated by: Rj Willams MD. Ordering:CAITLYN Walls MD
[2023-10-29 12:44] VITALS: BP 125/68; PULSE 64; RESP 16; O2SAT 97
== END 2023-10-29 12:50 | disposition home or self-care (01) ==
PROVIDERS: Emergency Provider Emergency Medicine; PCP Family Medicine
DX: S92.351A Displaced fracture of fifth metatarsal bone, right foot, initial encounter for closed fracture (principal); X50.1XXA Overexertion from prolonged static or awkward postures, initial encounter; Y93.01 Activity, walking, marching and hiking; Y92.018 Other place in single-family (private) house as the place of occurrence of the external cause
CPT/HCPCS: 99283; 73610; 73630

== ENCOUNTER 2023-11-15 15:56 | Outpatient (CLI) | payer BC, SELFPAY ==
--- NOTE | 2023-11-15 11:00 | DI.RAD_ITS ---
Exam(s) XR FOOT RT COMPLETE EXAM: XR FOOT RT COMPLETE CLINICAL HISTORY: F/U FRACTURE. TECHNIQUE: 2D digital imaging was performed. COMPARISON: CR,XR XR FOOT RT COMPLETE from 10/29/2023 FINDINGS: 3 views The mildly displaced fracture at the base of the 5th metatarsal is again noted. There is some blurri ng of the fracture line evident on the oblique view which implies an element of healing. No addition al fractures evident. IMPRESSION: There appears to be some healing at the fracture site at the base of the 5th metatarsal. DATA REPOSITORY: RADIATION DOSE DELIVERED:
== END 2023-11-15 15:57 | disposition home or self-care (01) ==
LOC: DIORS 15:56
PROVIDERS: PCP Family Medicine; Visit Provider Student in an Organized Health Care Education/Training Program
DX: S92.351D Displaced fracture of fifth metatarsal bone, right foot, subsequent encounter for fracture with routine healing (principal); X58.XXXD Exposure to other specified factors, subsequent encounter
CPT/HCPCS: 73630

== ENCOUNTER 2023-12-20 09:28 | Outpatient (CLI) | payer BC, SELFPAY ==
--- NOTE | 2023-12-20 08:00 | DI.RAD_ITS ---
Exam(s) XR FOOT RT COMPLETE EXAM: XR FOOT RT COMPLETE CLINICAL HISTORY: F/U FRACTURE. TECHNIQUE: 2D digital imaging was performed. Three views. COMPARISON: CR XR FOOT RT COMPLETE from 11/15/2023 FINDINGS: BONES: Stable alignment of fracture at the base of the 5th metatarsal. No new abnormalities. Heel s purs again noted. No bony destructive lesion is seen. JOINTS: No dislocation present. SOFT TISSUE: Swelling remains present. IMPRESSION: Stable alignment 5th metatarsal fracture. DATA REPOSITORY: RADIATION DOSE DELIVERED:
== END 2023-12-20 09:29 | disposition home or self-care (01) ==
LOC: DIORS 09:28
PROVIDERS: PCP Family Medicine; Referring Provider Family Medicine; Visit Provider Student in an Organized Health Care Education/Training Program
DX: S92.351A Displaced fracture of fifth metatarsal bone, right foot, initial encounter for closed fracture (principal)
CPT/HCPCS: 73630

== ENCOUNTER 2024-05-31 00:07 | Outpatient (CLI) | payer BC, SELFPAY ==
--- NOTE | 2024-05-31 08:27 | DI.MAMMO_ITS ---
Exam(s) MAMMO SCREENING EXAM: MAMMO SCREENING CLINICAL HISTORY: Screening, Z12.31 TECHNIQUE: Mammograms were interpreted according to the usual protocol including computer analysis w [employer] CAD system, tomosynthesis and C-view imaging. COMPARISON: 2015 through 2021 FINDINGS: The breasts are composed of scattered fibroglandular densities, Breast Density category B. No suspicious masses or suspicious microcalcifications are seen. No skin thickening or abnormal axillary lymph nodes are seen. There has been no significant change from prior exams. IMPRESSION: BI-RADS Category 1, Negative mammogram Yearly screening mammography is recommended. Breast Density - Category B, scattered fibroglandular densities. A negative radiographic report should not delay biopsy if a dominant or clinically suspicious mass is present. Up to ten percent of cancers are not identified on mammography. A negative report may reinforce clinical impression. Adenosis and dense breasts may obscure an underlying neoplasm. False positive reports average 6 to 10%. Patient will receive a letter notifying them of these results.
== END 2024-05-31 00:27 ==
LOC: DI 00:07
PROVIDERS: PCP Family Medicine; Visit Provider Family Medicine
DX: Z12.31 Encounter for screening mammogram for malignant neoplasm of breast (principal); R92.323 Mammographic fibroglandular density, bilateral breasts
CPT/HCPCS: 77063; 77067

== ENCOUNTER 2024-07-04 09:57 | Outpatient (REF) | payer BC, SELFPAY ==
--- OUTSIDE RECORDS SUMMARY | 2024-07-04 09:58 | XMS_ITS | Continuity of Care Document ---
Author Organization [facility] Ambulatory Clinics Address [address] [place] [address] Care Team Providers Care Database Manager Name Role Phone JOHN LACKEY Primary Care Physician Encounter [facility] NBR [id number] Date(s): 01/17/23 - 01/17/23 [facility] Ambulatory Clinics [address], [place] [address] Encounter Diagnosis Skin cyst(Discharge Diagnosis) - 06/28/22 Discharge Disposition: Home or Self Care Attending Physician: Matthew Wheeler, Allergies, Adverse Reactions, Alerts No Known Medication Allergies Assessment and Plan Future Appointments Medications brimonidine-dorzolamide ophthalmic 0 Refill(s) Start Date: 06/28/22 Status: Ordered Cod Liver Oil oral capsule 1 cap, Oral, Daily, # 30 cap, 0 Refill(s) Start Date: 06/28/22 Status: Ordered glutamine 0 Refill(s) Start Date: 06/28/22 Status: Ordered glutamine 500 mg oral tablet 500 mg = 1 tab, Oral, TID, 0 Refill(s) Start Date: 06/28/22 Status: Ordered latanoprost 0.005% ophthalmic emulsion 1 drops, Eye-Both, every evening, # 2.5 mL, 0 Refill(s) Start Date: 06/28/22 Status: Ordered One Daily Women's oral tablet 0 Refill(s) Start Date: 06/28/22 Status: Ordered oxybutynin 10 mg =, Oral, Daily, 0 Refill(s) Start Date: 06/28/22 Status: Ordered Frank's wort oral capsule 0 Refill(s) Start Date: 06/28/22 Status: Ordered Vitamin D3 0 Refill(s) Start Date: 06/28/22 Status: Ordered Problem List Condition Confirmation Course Effective Dates Status Health Status Informant Fatigue Confirmed Active Glaucoma Confirmed Active exposure to diethylstilbestrol Confirmed Active Hyperlipidemia Confirmed Active Sebaceous cyst Confirmed Active Physician Outpatient Note * Glory Rodas: MODIFY, MODIFY Matthew Wheeler DO: PERFORM, MODIFY Matthew Wheeler, DO: MODIFY Event Display: Office Clinic Note Physician Authored Date: [id number] [place] :1960 Age:62 years Sex:Female Chief Complaint Established- Cyst removal History of Present Illness Established patient in the office today to have three cysts removed. Patient has a cyst on the right scapular skin, left lower back, and right occiput scalp. She has had 7 cysts removed in her past. Review of Systems Negative for: no new cardiac, respiratory, GI, , hematologic, neurologic, psychological, allergic, traumatic or endocrine problems except as listed above Physical Exam GENERAL APPEARANCE:??The patient is awake, alert, and oriented and in no acute distress, Appears nutritionally sound, Healthy in appearance, Voice is strong, with no stridor or stertor, Handling secretions without difficulty.?PSYCH:??affect normal, good eye contact, oriented to person, oriented to place, oriented to time.?NEURO:??CN's II-XII grossly intact, Gait is normal, The patient has endpoint nystagmus only.?HEENT:??The patient is normocephalic with a normal facies with cranial nerves 2 through 12 bilaterally equal and intact. Pupils are equal and reactive to light with extraocular movements bilaterally equal and intact. There is no proptosis or enophthalmos ?NECK:??There is no palpable lymphadenopathy.?MUSCULOSKELETAL:??normal gait and station.?? Procedure There was a full discussion of all treatment options including conservative management, second opinion and surgical intervention. The patient and or family has opted to proceed with surgical intervention. We have discussed risks and complications as it relates to the procedure and postoperative period, including but not limited to those listed on the consent. All of their questions were answered,consent was reviewed and signed. There is no history of any bleeding disorders or anesthesia complications. We will proceed., Time out was taken to confirm proper surgical site and procedure.?Patient was placed in a prone position,??grounded on cautery pad in the right flank,??all areas were localized with a total of 26 cc of 1% lidocaine with 1-100,000 epinephrine. ??Areas were prepped and draped in??sterile??fashion with Betadine and sterile towels.?? 15 blade scalpel was used to incise the skin??overlying the cyst of the??left??upper back, right posterior shoulder and??left low back.?? M easurements included 1.9 cm of the left??upper back, 2.4 cm of the right posterior shoulder and 2.2cm of the??left??low back.?? The??dissection included subcutaneous??removal of the entire capsule??of all lesions in the cutaneous tract hemostasis controlled with electrocautery. ??Intermediate fashion closure was performed??in all 3 areas??including 3-0 Monocryl, 4-0 Monocryl and 3-0 Prolene. ??Patient was stable??upon discharge.?? Instructions were reviewed with her in writing. Assessment/Plan 1.??Skin cyst??L72.9 3 separate lesions,??one of the left upper back, right posterior shoulder and left low back Problem List/Past Medical History Ongoing Fatigue exposure to diethylstilbestrol Glaucoma Hyperlipidemia Sebaceous cyst Historical No qualifying data Medications brimonidine-dorzolamide ophthalmic Cod Liver Oil oral capsule, 1 cap, Oral, Daily glutamine glutamine 500 mg oral tablet, 500 mg= 1 tab, Oral, TID latanoprost 0.005% ophthalmic emulsion, 1 drops, Eye-Both, every evening One Daily Women's oral tablet oxybutynin, 10 mg, Oral, Daily Seward's wort oral capsule Vitamin D3 Allergies No Known Medication Allergies Electronically Signed on 01/17/23 01:50 PM Matthew Wheeler DO Patient Care team information Care Team Personnel Name: JOHN LACKEY Position: No Access Member Role: Primary Care Physician Address: Address: [address] [address]- [place]
--- OUTSIDE RECORDS SUMMARY | 2024-07-04 09:58 | XMS_ITS | Encounter Summary ---
Author Organization [facility] [place] [address] Care Team Providers Care Supervisor Dog License Officer Name Role Phone Collette Garzon MD Primary Care Provider [phone] Reason for Visit * Reason Comments Post Op 1 week s/p trab [facility] OD Encounter Details Date Type Department Care Team (Late st Contact Info) Description 03/11/2014 10:30 AM EDT Office [place] [address] CLINIC, Lee Christianson MD Trab [facility] OD no prior surgery 03/03/2014 (Primary Dx) Discharge Disposition: Home Social History Tobacco Use Types Packs/Day Years Used Date Smoking Tobacco: Never Alcohol Use Standard Drinks/Week Comments No 0 (1 standard drink = 0.6 oz pur e alcohol) Sex and Gender Information Value Date Recorded Sex Assigned at Not on file Gender Identity Not on file Sexual Orientation Not on file documented as of this encounter Patient Instructions * Patient Instructions* Lee Powers MD - 03/10/2014 5:38 PM EDT Things look great 1 week following trabeculectomy right eye Stop taking the ketorolac (alonso top) and vigamox (beige top) drops Keep taking the Prednisolone drops every 2 hours for 2 more weeks then taper as follows; 4x/day for 1 week 3x/day for 1 week 2x/day for 1 week 1x/day for 1 week Then STOP. Return for 3 week post surgery visit; sooner if there are any problems. For additional information about eye conditions, visit the Eye Facts portion of my website at http://[employer]/eye-education/ and I also started a Glaucoma Patient Group on [employer] (htt ps://[employer]com/groups/glaucomapatientgroup) for patients to seek help from one another. (Search for Glaucoma Patient Group and then ask to join.) documented in this encounter Progress Notes * Lee Powers MD - 03/10/2014 5:37 PM EDT Things look great 1 week following trabeculectomy right eye Stop taking the ketorolac (alonso top) and vigamox (beige top) drops Keep taking the Prednisolone drops every 2 hours for 2 more weeks then taper as follows; 4x/day for 1 week 3x/day for 1 week 2x/day for 1 week 1x/day for 1 week Then STOP. Return for 3 week post surgery visit; sooner if there are any problems. documented in this encounter Plan of Treatment Not on file documented as of this encounter Visit Diagnoses Diagnosis Trab [facility] OD no prior surgery 03/03/2014- Primary Other states following surgery of eye and adnexa documented in this encounter Care Teams Supervisor Dog License Officer Relationship Specialty Start Date End Date Collette Garzon MD [address] [place] [address] PCP - General 05/18/10 documented as of this encounter
--- OUTSIDE RECORDS SUMMARY | 2024-07-04 09:58 | XMS_ITS | Clinical Summary ---
Author Organization [facility] Address [facility] [place] [address] Care Team Providers Care Sales Contractor Name Role Phone Collette Garzon MD Primary Care Provider [phone] Allergies Active Allergy Reactions Criticality Noted Date Comments Brimonidine-Timolol Rash 11/21/2013 Skin rash on lid Medications Medication Sig Dispensed Refills Start Date End Date Status CIS Free Text Med - Multiple Vitamin 07/30/2008 Active ERGOCALCIFEROL, VITAMIN D2, (VITAMIN D ORAL) 07/30/2008 Acti ve COD LIVER OIL ORAL 07/30/2008 Active MAGNESIUM CHLORIDE ORAL 07/30/2008 A ctive latanoprost (XALATAN) 0.005 % Drops Place 1 drop into the left eye nightly. 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 Trab [facility] OD no prior surgery 03/03/2014 03/03/2014 Assessment & Plan (04/17/2014 11:22 AM EDT): Things look great following surgery with low IOP of 10 Keep tapering off the drops Return to Dr Rosas for ongoing care in approximately 4-6 weeks PRN with me Irritant contact dermatitis 09/17/2013 Glaucoma, open angle 01/02/2012 Assessment & Plan (04/17/2014 11:24 AM EDT): Stable right eye following trabeculectomy Continue to monitor left eye for progression, stay on current drops for now Follow-up with Dr Rosas High myopia, both eyes 01/02/2012 Family History Medical History Relation Comments Cancer Father Cataracts Father Glaucoma Father Heart Disease Father Hypertension Father Macular Degeneration Father Cancer Mother Heart Disease Mother Amblyopia Neg Hx Blindness Neg Hx Diabetes Neg Hx Retinal Detachment Neg Hx Strabismus Neg Hx Stroke Neg Hx Thyroid Disease Neg Hx Relation Status Comments Father Mother Social History Tobacco Use Types Packs/Day Years Used Date Smoking Tobacco: Never Alcohol Use Standard Drinks/Week Comments No 0 (1 standard drink = 0.6 oz pur e alcohol) Sex and Gender Information Value Date Recorded Sex Assigned at Not on file Gender Identity Not on file Sexual Orientation Not on file Last Filed Vital Signs Vital Sign Reading Time Taken Comments Blood Pressure 119/84 03/03/2014 11:34 AM EDT Pulse 72 03/03/2014 11:34 AM EDT Temperature 36.2 ??C (97.2 ??F) 03/03/2014 11:34 AM E DT Respiratory Rate 16 03/03/2014 11:34 AM EDT Oxygen Saturation 100% 03/03/2014 11:34 AM EDT Inhaled Oxygen Concentration - - Weight 78.5 kg (173 lb) 03/03/2014 9:41 AM EDT Height 167.6 cm (5' 6) 03/03/2014 9:41 AM EDT Body Mass Index 27.92 03/03/2014 9:41 AM EDT Plan of Treatment Health Maintenance Due Date Last Done Comments CT Colonography 1960 Colonoscopy 1960 Colorectal Cancer Screening 1960 FIT DNA 1960 FIT 1960 Sigmoidoscopy (10 year) with FIT yearly 1960 Sigmoidoscopy 1960 HIV screen 1979 Hepatitis C Screening 1979 Tetanus/Diphtheria/Pertussis Vaccines (1 - Tdap) 05/01 HPV test 1991 PAP Smear 1991 Breast Cancer Share Decision Needed 2001 Breast Cancer screening 2001 Zoster vaccine (1 of 2) 2011 Advance Directive 2016 Covid-19 Vaccine ( season) 2024 Influenza (Flu) vaccine (1 o f 1 - Influenza standard series) 02/25/2024 Care Teams Sales Contractor Relationship Specialty Start Date End Date Collette Garzon MD [address] [place] [id number] [facility] - General 05/18/10
--- OUTSIDE RECORDS SUMMARY | 2024-07-04 09:58 | XMS_ITS | Encounter Summary ---
Author Organization [facility] [place] [address] Care Team Providers Care Architecture Internship Name Role Phone Collette Garzon MD Primary Care Provider [phone] Reason for Visit * Reason Comments Skin Check * Consultation (Routine) - Specialty Diagnoses / Procedures Referred By Contrenan t Referred To Contact Dermatology Diagnoses Other benign neoplasm of skin, unspecified Skin Check Procedures Skin Check Collette Garzon MD [address] [place] [address] Nolan Trammell MD [address] [place] [address], [place] [address] Referral ID Status Reason Start Date Expiration Date V isits Requested Visits Authorized [id number] 09/27/2016 09/27/2017 1 1 Encounter Details Date Type Department Care Team (Late st Contact Info) Description 12/21/2016 8:15 AM EDT Office Visit Dermatology at [address] [address] Nolan Trammell MD [address] [place] [address], [place] [address] Nevus; Hemangioma Social History Tobacco Use Types Packs/Day Years Used Date Smoking Tobacco: Never Alcohol Use Standard Drinks/Week Comments No 0 (1 standard drink = 0.6 oz pur e alcohol) Sex and Gender Information Value Date Recorded Sex Assigned at Not on file Gender Identity Not on file Sexual Orientation Not on file documented as of this encounter Progress Notes * Nolan Trammell MD - 12/21/2016 8:15 AM EDT PROBLEM: Skin checkup. Reena follows up after last being seen by me for an irritant eye dermatitis in 2013. She states that she would like to have a general skin checkup today. She has numerous moles and Dr. Garzon also would like to have these checked. She states that she is not aware of any personal or family history of skin cancer or melanoma. She has had a lot of sun growing up. Patient has a history of multiple pilar cysts of the scalp that have been excised by Dr. Duarte in the past. There is a family history in her father of the same. Physical examination reveals a pleasant 56-year-old woman who has numerous junctional melanocytic nevi and small solar lentigos over the upper shoulders and of her back. She has benign-appearing melanocytic nevi as well, primary junctional, but some compound and intradermal also on the back, arms, and forearms. They are benign by the ABCD criteria. She has numerous morocho red hemangiomas particularly on her anterior thighs. She has 2 venous lakes on the left lower lip at the angle of her mouth. Examination of the face, the neck, the chest, the back, hands, arms, forearms, thighs, and the calves is otherwise benign. A/P: Benign melanocytic nevi, benign morocho hemangiomas. a. Patient reassured about numerous benign nevi. b. Discussed recognition of skin cancer, melanoma and nonmelanoma types. AAD brochure given and discussed. c. Encouraged the continuation of sun avoidance precautions which patient is currently following, using SPF 50 sunscreen and wearing a hat when she is out of doors. Return to clinic here will be p.r.n. CC: Collette Garzon MD documented in this encounter Plan of Treatment Not on file documented as of this encounter Visit Diagnoses Diagnosis Nevus Benign neoplasm of skin, site unspecified Hemangioma documented in this encounter Care Teams Architecture Internship Relationship Specialty Start Date End Date Collette Garzon MD [address] [place] [address] PCP - General 05/18/10 documented as of this encounter
--- OUTSIDE RECORDS SUMMARY | 2024-07-04 09:58 | XMS_ITS | Encounter Summary ---
Author Organization [facility] [place] [address] Care Team Providers Care Podiatric Foot And Ankle Specialist Name Role Phone Collette Garzon MD Primary Care Provider [phone] Reason for Visit * Reason Comments Post Op 3 wks post-op trab/M [facility] OD Encounter Details Date Type Department Care Team (Latest Contact Info) Description 03/25/2014 10:30 AM EDT Office [place] [address] CLINIC, Lee Christianson MD Trab [facility] OD no prior surgery 03/03/2014; Glaucoma, open angle, indeterminate stage Discharge Disposition: Home Social History Tobacco Use [...] * Patient Instructions* Lee Powers MD - 03/24/2014 9:59 PM EDT Things look great 3 week following trabeculectomy right eye Prednisolone drops taper as follows; 4x/day for 1 week 3x/day for 1 week 2x/day for 1 week 1x/day for 1 week Then STOP. Return for 6 week post-operative visit or surgery day for your other eye. For additional information about eye conditions, visit the Eye Facts portion of my website at http://[employer].Atlantium/eye-education/ and I also started a Glaucoma Patient Group on [employer] (htt [email or web address]/groups/[email or web address]) for patients to seek help from one another. (Search for Glaucoma Patient Group and then ask to join.) documented in this encounter Progress Notes * Lee Powers MD - 03/24/2014 9:58 PM EDT Things look great 3 week following trabeculectomy right eye Prednisolone drops taper as follows; 4x/day for 1 week 3x/day for 1 week 2x/day for 1 week 1x/day for 1 week Then STOP. Return for 6 week post-operative visit or surgery day for your other eye. documented in this encounter Plan of Treatment Not on file documented as of this encounter Visit Diagnoses Diagnosis Trab [facility] OD no prior surgery 03/03/2014 Other states following surgery of eye and adnexa Glaucoma, open angle, indeterminate stage Open-angle glaucoma, unspecified documented in this encounter Care Teams Podiatric Foot And Ankle Specialist Relationship Specialty Start Date End Date Collette Garzon MD [address] [place] [address] PCP - General 05/18/10 documented as of this encounter
--- OUTSIDE RECORDS SUMMARY | 2024-07-04 09:58 | XMS_ITS | Encounter Summary ---
Author Organization [facility] [place] [address] Care Team Providers Care Lumber Driver Name Role Phone Collette Garzon MD Primary Care Provider [phone] Reason for Visit * Reason Comments Post Op 6 week s/p Trab with [facility] OD done 03/03/2014 Encounter Details Date Type Department Care Team (Late st Contact Info) Description 04/17/2014 10:30 AM EDT Office [place] [phone] CLINIC, Lee Christianson MD Trab [facility] OD no prior surgery 03/03/2014; Glaucoma, open angle, stage unspecified Discharge Disposition: Home Social History Tobacco Use [...] * Patient Instructions* Lee Powers MD - 04/17/2014 11:25 AM EDT Trab [facility] OD no prior surgery 03/03/2014 Things look great following surgery with low IOP of 10 Keep tapering off the drops Return to Dr Rosas for ongoing care in approximately 4-6 weeks PRN with me Glaucoma, open angle Stable right eye following trabeculectomy Continue to monitor left eye for progression, stay on current drops for now Follow-up with Dr Rosas For additional information about eye conditions, visit the Eye Facts portion of my website at http://L[employer]ies.Getlenses.co.uk/eye-education/ and I also started a Glaucoma Patient Group on [employer] (htt [email or web address]/groups/[email or web address]) for patients to seek help from one another. (Search for Glaucoma Patient Group and then ask to join.) documented in this encounter Progress Notes * Lee Powers MD - 04/17/2014 10:52 AM EDT Trab [facility] OD no prior surgery 03/03/2014 Things look great following surgery with low IOP of 10 Keep tapering off the drops Return to Dr Rosas for ongoing care in approximately 4-6 weeks PRN with me Glaucoma, open angle Stable right eye following trabeculectomy Continue to monitor left eye for progression, stay on current drops for now Follow-up with Dr Rosas documented in this encounter Miscellaneous Notes * Assessment & Plan Note - Lee Powers MD - 04/17/2014 11:24 AM EDT Associated Problem(s): Glaucoma, open angle Stable right eye following trabeculectomy Continue to monitor left eye for progression, stay on current drops for now Follow-up with Dr Rosas * Assessment & Plan Note - Lee Powers MD - 04/17/2014 11:22 AM EDT Associated Problem(s): Trab [facility] OD no prior surgery 03/03/2014 Things look great following surgery with low IOP of 10 Keep tapering off the drops Return to Dr Rosas for ongoing care in approximately 4-6 weeks PRN with me documented in this encounter Plan of Treatment Not on file documented as of this encounter Visit Diagnoses Diagnosis Trab [facility] OD no prior surgery 03/03/2014 Other states following surgery of eye and adnexa Glaucoma, open angle, stage unspecified documented in this encounter Care Teams Lumber Driver Relationship Specialty Start Date End Date Colltete Garzon MD [address] [place] [address] PCP - General 05/18/10 documented as of this encounter
--- OUTSIDE RECORDS SUMMARY | 2024-07-04 09:59 | XMS_ITS | Encounter Summary ---
Author Organization [facility] [place] [address] Care Team Providers Care Collective Bargaining Specialist Name Role Phone Collette Garzon MD Primary Care Provider [phone] Reason for Visit * Reason Comments Skin Check Encounter Details Date Type Department Care Team (Late st Contact Info) Description 09/17/2013 10:45 AM EDT Office Visit Dermatology at [address] [place] [phone] Nolan Trammell MD [address], [facility] [place] [address] Irritant contact dermatitis (Primary Dx) Social History Tobacco Use Types Packs/Day Years Used Date Smoking Tobacco: Never Alcohol Use Standard Drinks/Week Comments No 0 (1 standard drink = 0.6 oz pur e alcohol) Sex and Gender Information Value Date Recorded Sex Assigned at Not on file Gender Identity Not on file Sexual Orientation Not on file documented as of this encounter Progress Notes * Nolan Trammell MD - 09/17/2013 11:05 AM EDT Problem: Eyelid dermatitis. Reena is a 53-year-old woman who is referred today for evaluation and treatment of an irritant eyelid dermatitis related to her eye drops. She has glaucoma and must use her topical timolol/brimonidine drops on a b.i.d. basis to her right eye and latanoprost drops to both her left and right eyes. She has been using eye drops for about the last five years. At one point, she was using Combigan product, which contains both the timolol and brimonidine, and was using that when the eyelid dermatitis began on her right upper and lower eyelids. Switching to the individual components did not bring improvement and she is hoping to go back to the Combigan product. Patient has no history of eczema or allergies, but does have a history of hay fever, seasonal allergies, particularly in the spring and the fall. She states that for her eyelid dermatitis she initially used hydrocortisone cream and would have temporary response to that, but she is concerned about using it on a long-term basis, and has been using bag balm and Aveeno and other emollients with plus/minus benefit. She says the eyelid dermatitis has been particularly symptomatic and obvious for the last year and a half and seems to be getting worse. Her recyclable materials distributor is Dr. Chun Rosas, who has told her that she must stay on these particular medications; there really are not good alternatives for her. The patient is seen in consultation today for Collette Garzon M.D. Physical examination reveals a pleasant 53-year-old woman who has erythema emanating from the right medial canthus, extending up onto the right upper and lower eyelid with lichenified appearance. There is minimal swelling and edema. The left eye is uninvolved. She has no dermatitis on the hands or the rest of the face. Assessment and Plan: 1. Irritant chronic dermatitis, OD, sparing OS. a. Recommend that we begin using Westcort ointment, hydrocortisone valerate, 0.2% b.i.d. for a week or two to get the irritant dermatitis controlled, as well as the itching, 30 grams dispensed with one refill. b. Then switch to Protopic 0.1% ointment as a steroid free antiinflammatory alternative and use this on a b.i.d. basis. My hope is that she will be able to cut this back to q. day or q.o. day, and at that point would recommend that she apply Vaseline petroleum jelly to her eyelids morning and evening, prior to the application of the drops, to minimize the irritant effect of the drops. She may wipe off the Vaseline petroleum jelly after applying the drops. c. Discussed with patient the black box warning regarding Protopic, but stressed its safety when used on the eyelids and around the eyes. d. Recommend that I see her back again in a month for repeat check on her progress. COPY: Collette Garzon M.D. Chun Rosas M.D. documented in this encounter Plan of Treatment Not on file documented as of this encounter Visit Diagnoses Diagnosis Irritant contact dermatitis- Primary Contact dermatitis and other eczema, due to unspecified cause documented in this encounter Care Teams Collective Bargaining Specialist Relationship Specialty Start Date End Date Collette Garzon MD [address] [place] [address] PCP - General 05/18/10 documented as of this encounter
--- OUTSIDE RECORDS SUMMARY | 2024-07-04 09:59 | XMS_ITS | Encounter Summary ---
Author Organization [facility] [place] [address] Care Team Providers Care Digital Music Instructor Name Role Phone Collette Garzon MD Primary Care Provider [phone] Reason for Visit * Reason Comments Chronic Open Angle Glaucoma Encounter Details Date Type Department Care Team (Late st Contact Info) Description 11/21/2013 9:30 AM EDT Office Visit Ophthalmology at [facility] [place] [address] CLINIC, Lee Christianson MD Glaucoma, open angle, moderate stage (Primary Dx) Discharge Disposition: Home Social History [...] * Patient Instructions* Lee Powers MD - 11/21/2013 9:50 AM EDT As we discussed, you are on the maximum tolerable medical therapy in both eyes and had laser trabeculoplasty in your left eye (didn't work at all) yet are still showing progressive glaucoma damage inyour right eye. We talked about surgery at a young age like yours and this means more years of life ahead of you over which you could get an infection of the surgery site but also that this means more years ahead of you to slowly have your glaucoma get worse which means increased risk of very significant vision loss in your lifetime if not treated. The trabeculectomy that is planned for your right eye (and possibly left in the future) is surgery to bypass your normal drainage channels in your eye to lower your eye pressure. It should allow you to stop most or all of your current glaucoma drops and should prevent your glaucoma from getting worse. It does not bring vision back that has already been lost from glaucoma. Although there is the potential for complications such as bleeding in the eye or infection that can be blinding, these potential risk factors are far outweighed by the benefits of the surgery. For additional information about eye conditions, visit the Eye Facts portion of my website at http://InsightSquared/eye-education/ and I also started a Glaucoma Patient Group on [employer] forpatients to seek help from one another. (Search for Glaucoma Patient Group and then ask to join.) documented in this encounter Progress Notes * Lee Powers MD - 11/21/2013 9:54 AM EDT Reason for visit today: Progressive glaucoma OD>>OS on max tolerated med therapy Assessment: 1. Progressive open angle glaucoma OD 2. Allergic to combigan she is taking 3. IOP still too high Plan: 1. Trab with [facility] no Hx prior Sx OD 2. Possible future surgery OS documented in this encounter Plan of Treatment Not on file documented as of this encounter Procedures Procedure Name Priority Date/Time Associated Diagnosis Comments TRABECULECTOMY Routine 11/21/2013 10:01 AM EDT documented in this encounter Visit Diagnoses Diagnosis Glaucoma, open angle, moderate stage- Primary Open-angle glaucoma, unspecified documented in this encounter Care Teams Digital Music Instructor Relationship Specialty Start Date End Date Collette Garzon MD [address] [place] [address] PCP - General 05/18/10 documented as of this encounter
--- OUTSIDE RECORDS SUMMARY | 2024-07-04 09:59 | XMS_ITS | Encounter Summary ---
Author Organization [facility] [place] [address] Care Team Providers Care Candle Wrapper Name Role Phone Collette Garzon MD Primary Care Provider [phone] Reason for Visit * Reason Comments Chronic Open Angle Glaucoma Sent by Dr. Rosas to consider surgery due to progressing visual field defect in the right eye Encounter Details Date Type Department Care Team (Late st Contact Info) Description 10/03/2011 9:15 AM EDT Office [place] [phone] Adrian Duran MD Glaucoma, open angle (Primary Dx); High myopia, both eyes Discharge Disposition: Home Social History Tobacco Use Types Packs/Day Years Used Date Smoking Tobacco: Never Sex and Gender Information Value Date Recorded Sex Assigned at Not on file Gender Identity Not on file Sexual Orientation Not on file documented as of this encounter Progress Notes * Adrian Duran MD - 09/29/2011 1:05 PM EDT 51yo Wh F referred by Dr. Rosas ([place], [place]) for Gl eval Using Comb (2,0) and Lat (1,1) for IOP control Seen by C in 08/04 Gl Dx 1999, PreRx IOP = 25 SLT OS 360 2006 > NR Alph > NR, Srinivas > NR, Cosopt > irritation + FHx Father (drops, ? surgery, ? loss of VA OS) Pachy nl 566 / 557 Hi myope (-) 13 range OCT x 1 (08/04) 106 / 90 HVF x 11 (09/25 > 08/07) OD progr sup step 10.08, nl in 11/26 OS very stable sup step 5.27 Assess Ph OAG OD > OS, VF progression OD MTMT, no SLT b/o nr OS Plan OCT #2 today > 83 / 75 23pt loss OD, 15pt loss OS Retinal eval r/o retinal cause of VF loss Cont same drops DT reviewed and HO given Next = phakic trab OD (hesitant due to hi myopia) RV Fall IOP ck Plan documented in this encounter Nursing Notes * 10/03/2011 9:15 AM EDT >> CHELY HIGGINBOTHAM, BENITA MonOct 03, 2011 9:48 AM Eye Pain: None Vision: Unchanged Symptoms: Dry eyes, suspected to be due to Glaucoma drops Spectacle use: High Myope using glasses since Grade 2; discontinued use of contact lenses after 30 years of use, recently stopped using Ocular Trauma: None Using: Latanoprost qhs OU Combigan BID OD Ocular History: Glaucoma diagnosed in 1998 SLT 360 OS 2006 Was interested in LASIK but is not a candidate due to amount of myopis vs corneal thickness. Family History: Father had Glaucoma late in life, in his 70's. He had surgery for Glaucoma. documented in this encounter Plan of Treatment Not on file documented as of this encounter Visit Diagnoses Diagnosis Glaucoma, open angle- Primary Open-angle glaucoma, unspecified High myopia, both eyes Myopia documented in this encounter Care Teams Candle Wrapper Relationship Specialty Start Date End Date Collette Garzon MD [address] [place] [address] PCP - General 05/18/10 documented as of this encounter
--- OUTSIDE RECORDS SUMMARY | 2024-07-04 09:59 | XMS_ITS | Encounter Summary ---
Author Organization [facility] [place] [address] Care Team Providers Care Metal Sheet Roller Operator Name Role Phone Collette Garzon MD Primary Care Provider [phone] Reason for Visit * Reason Comments Myopia high myopia ou, sent here for retina eval. by Dr Duran. No symptoms or problems per pt Encounter Details Date Type Department Care Team (Late st Contact Info) Description 11/04/2011 9:15 AM EDT Office [place] [phone] Jeanne Bajwa MD Myopia of both eyes (Primary Dx) Discharge Disposition: Home Social History Tobacco Use Types Packs/Day Years Used Date Smoking Tobacco: Never Sex and Gender Information Value Date Recorded Sex Assigned at Not on file Gender Identity Not on file Sexual Orientation Not on file documented as of this encounter Progress Notes * Jeanne Bajwa MD - 11/04/2011 10:15 AM EDT 1. Myopia OU. No lattice, no tears, no RD. 2. Glaucoma OU 3. Early cataracts OU 4. Refractive error OU Imp: Stable from retinal perspective. Plan: To Dr Duran in 6 months for f/up HVF and nerve check. documented in this encounter Nursing Notes * 11/04/2011 9:15 AM EDT >> JEANNE BAJWA MD MonNovember 04, 2011 10:15 AM 1. Treated for OAG with gtts since 99. 2. High myopia, asymptomatic.MAGDALENA documented in this encounter Plan of Treatment Not on file documented as of this encounter Visit Diagnoses Diagnosis Myopia of both eyes- Primary Myopia documented in this encounter Care Teams Metal Sheet Roller Operator Relationship Specialty Start Date End Date Collette Garzon MD [address] [place] [address] PCP - General 05/18/10 documented as of this encounter
--- OUTSIDE RECORDS SUMMARY | 2024-07-04 09:59 | XMS_ITS | Encounter Summary ---
Author Organization [facility] [place] [address] Care Team Providers Care Music Educator Name Role Phone Collette Garzon MD Primary Care Provider [phone] Encounter Details Date Type Department Care Team (Late st Contact Info) Description 03/03/2014 11:05 AM EDT - 03/03/2014 12:00 PM EDT Surgery [place] [id number] Viky Powers MD TRABECULECTOMY (WRVU 13.94) Social History Tobacco Use Types Packs/Day Years Used Date Smoking Tobacco: Never Alcohol Use Standard Drinks/Week Comments No 0 (1 standard drink = 0.6 oz pur e alcohol) Sex and Gender Information Value Date Recorded Sex Assigned at Not on file Gender Identity Not on file Sexual Orientation Not on file documented as of this encounter Last Filed Vital Signs Vital Sign Reading [...] Mass Index 27.92 03/03/2014 9:41 AM EDT documented in this encounter Discharge Instructions * Discharge Instructions* Lalita Wilkins RN - 03/03/2014 9:54 AM EDT Instructions for the first day following GLAUCOMA surgery (trab, phaco/trab, tube-shunt) Viky Powers MD, [facility], [facility] [place] [phone] - Wear either the eye shield or glasses of any kind 24 hours per day for the first week following surgery. - The surgery center nurses should confirm time of your follow up appointment for tomorrow with . This appointment will be at the [facility] in the main building at [place]. - Mild discomfort is normal, but if you have any severe eye pain or bleeding call [phone] and ask to speak to the eye doctor preparation operator. - Call you Primary Care Doctor or the Emergency Room for any non eye-related medical issues. - Your eye will be red tomorrow - this is normal. - Start your post-op drops in 2 hours. Your post-op drops are prednisolone acetate 1% taken every 2hours while awake, Ketorolac and Vigamox four times daily. - Be sure to wait 5 minutes between each drop so that they don't dilute each other. - The prednisolone acetate drops (pink) need to be shaken 30 times. - Some of the drops, especially the Ketorolac (alonso), may sting. It can be helpful to refrigerate them to make them more comfortable. - STOP your glaucoma drops in your operated eye only but keep taking them in your other eye if applicable - After the first week, stop the vigamox and ketorolac drops but keep taking your prednisolone drops (pink) every 2 hours while awake - After the first three weeks, begin tapering your prednisolone drops to 4x/day for 1 week, then 3x/day for 1 week, then 2x/day for 1 week, then 1x/day for 1 week, then STOP. - Bring your Eye Kit to all postoperative visits. Moderate Sedation You may have received medication before and/or during your procedure, which affects your judgement and reaction time. Do not drive, operate machinery, drink alcoholic beverages, or make any legal decisions for 24 hours. Be careful on stairs, as you may be unsteady on your feet. You may eat a regular diet as tolerated. Do not smoke if you are alone. IV site -- slight redness, or tenderness is normal, you can use a warm compress. If tenderness and redness increases or foul drainage occurs, please contact your M. D. Questions or problems after 5pm or on a weekend: Call the [facility] hydropress operator and ask for the physician preparation operator covering for your doctor. documented in this encounter Medications at Time of Discharge Medication Sig Dispensed Refills Start Date End Date latanoprost (XALATAN) 0.005 % Drops Place 1 drop into the left eye nightly. 2.5 mL 12 03/03/2014 CIS Free Text Med - Multiple Vitamin 07/30/2008 ERGOCALCIFEROL, VITAMIN D2, (VITAMIN D ORAL) 07/30/2008 COD LIVER OIL ORAL 07/30/2008 MAGNESIUM CHLORIDE ORAL 07/30/2008 prednisoLONE acetate (PRED FORTE) 1 % Drops, SuspensionIndications:Oth er states following surgery of eye and adnexa 1 drop right eye q2h x 3weeks, then JJDx4cf, KLUg7zk, KKWz0dl, qDx1wk then STOP 10 mL 3 03/03/2014 12/21/2016 CIS Free Text Med - adrenal rebuilder 07/30/2008 12/21/2016 documented as of this encounter H&P Notes * Viky Powers MD - 03/03/2014 9:31 AM EDT No interval change eyes or general health. Source Note - Viky Powers MD - 03/03/2014 9:30 AM EDT Patient Name: Reena Ulloa Patient Age: 53 y.o. Birthdate: 1960 Admit date: 03/03/2014 Attending Physician: Viky Powers MD [facility] pre-op H & P from [place] reviewed and cleared for glaucoma surgery. * Viky Powers MD - 03/03/2014 9:30 AM EDT Patient Name: Reena Ulloa Patient Age: 53 y.o. Birthdate: 1960 Admit date: 03/03/2014 Attending Physician: Viky Powers MD [facility] pre-op H & P from [place] reviewed and cleared for glaucoma surgery. documented in this encounter Miscellaneous Notes * Miscellaneous - Provider, Scanning - 03/03/2014 2:30 PM EDT * OR Attestation - Viky Powers MD - 03/03/2014 11:32 AM EDT Attestation: Case Date: 03/03/2014 I performed this procedure without the involvement of a resident. VIKY POWERS MD 03/03/2014 * Op Note - Viky Powers MD - 03/03/2014 11:30 AM EDT [place] Operative Note Patient Name: Reena Ulloa : [id number] MR#: [id number] Case Date: 03/03/2014 Surgeon: Surgeon(s) and Role: * Viky Powers MD - Primary Preoperative diagnosis: Pigmentary glaucoma right eye Postoperative diagnosis: Pigmentary glaucoma right eye Procedure(s): TRABECULECTOMY [facility] RIGHT EYE IV Conscious Sedation Estimated Blood Loss: nil Drains: nil Disposition: regional anesthesia adiminstered without incident Condition: doing well without problems (Please see the Surgical Encounter Summary for any Implant and Specimen details pertinent to this patient.) HPI/Surgical Indications: Glaucoma progressing on current medical therapy and allergies to medications right eye Procedure Description: The patient was prepped and draped in the usual manner leaving the right eyeopen to the surgical field. A lid speculum was inserted into the interperpebral fissure, lidocaine jelly was applied to the eye, and a 6- vicryl peripheral clear cornea traction suture was placed superiorly and the eye was infraducted. A peritomy was performed superiorly after raising a bleb with amixture of 2% lidocaine and 0.75% bupivicaine. This was dissected beyond the equator and hemostasiswas achieved with wet field cautery. Mitomycin-C 0.4 mg/ml was applied using two mini neuropatties and kept on the scleral surface for 3 minutes before being copiously irrigated with BSS. A temporal paracentesis was created and viscoelastic was used to half-fill the anterior chamber. A scleral tunnel was then created 4mm in length, 3mm posterior to the limbus, and dissected 1mm into clear cornea and the sides were cut to convert it to a flap. An internal sclerectomy was then created followed byan iridectomy. The iris reposited well. The scleral flap was sutured closed with two 10-0 nylon sutures. The conjunctiva was then closed using 8-0 vicryl on a BV needle. The traction suture was removed then betadine, vigamox, and maxitrol were instilled into the eye. documented in this encounter Plan of Treatment Not on file documented as of this encounter Procedures Procedure Name Priority Date/Time Associated Diagnosis Comments TRABECULECTOMY (WRVU 13.94) 03/03/2014 10:50 AM EDT COAG documented in this encounter Visit Diagnoses Not on filedocumented in this encounter Administered Medications Inactive Administered Medications - up to 3 most recent administrations Medication Order MAR Action Action Date Dose Rate Site balanced salt (BSS) irrigation solution ONCE PRN, Starting on Mon03/03/14 at 1106, Until Mon03/03/14 at 1422, Intra-Operative (Intra-Procedure), Routine Given 03/03/2014 11:06 AM EDT 3 Bottles Right Eye BUpivacaine (PF) (MARCAINE) 0.75 % (7.5 mg/mL) injection ONCE PRN, Starting on Mon03/03/14 at 1107, Until Mon03/03/14 at 1422, Intra-Operative (Intra-Procedure), Routine Given 03/03/2014 11:07 AM EDT 4 mLs ketorolac tromethamine (ACULAR) 0.5 % ophthalmic solution 1 drop 1 drop, Right Eye, ONCE, 1 dose, On Mon03/03/14 at 1000, 1 drop to the operative eye once, start on day of surgery, Day of Surgery (Day of Procedure), Routine Given 03/03/2014 10:00 AM EDT 1 drop lactated ringers infusion 1,000 mL 1,000 mL, at 100 mL/hr, Intravenous, CONTINUOUS, Starting on Mon03/03/14 at 1000, Until Mon03/03/14 at 1422, Day of Surgery (Day of Procedure) New Bag 03/03/2014 9:50 AM EDT 1,000 mLs 100 mL/hr Lidocaine (PF) (XYLOCAINE) 20 mg/mL (2 %) injection ONCE PRN, Starting on Mon03/03/14 at 1108, Until Mon03/03/14 at 1422, Intra-Operative (Intra-Procedure), Routine Given 03/03/2014 11:09 AM EDT 40 mg Right Eye midazolam (PF) (VERSED) 1 mg/mL injection 0.5-2 mg 0.5-2 mg, Intravenous, EVERY 5 MIN PRN, Starting on Mon03/03/14 at 0942, Until Mon03/03/14 at 1422, Sleep, Anxiety, Hold for delirium/agitation. (Maximum dose 5 mg)., Intra-Operative (Intra-Procedure), Routine Given 03/03/2014 11:10 AM EDT 0.5 mg Given 03/03/2014 11:00 AM EDT 0.5 mg Given 03/03/2014 10:52 AM EDT 1 mg mitoMYcin 0.4 mg/mL chemo (ophthalmic) in sodium chloride 0.9% Preservative-Free ONCE PRN, Starting on Mon03/03/14 at 1109, Until Mon03/03/14 at 1422, Intra-Operative (Intra-Procedure), Routine Given 03/03/2014 11:09 AM EDT 0.4 mg Righ t Eye moxifloxacin (VIGAMOX) 0.5 % ophthalmic solution 1 drop 1 drop, Right Eye, EVERY 5 MIN, 3 doses, First dose on Mon03/03/14 at 1000, Last dose on Mon03/03/14 at 1010, 1 drop to the operative eye every 5 minutes times 3. Start on the day of surgery. , Day of Surgery (Day of Procedure), Routine Given 03/03/2014 10:10 AM EDT 1 drop Given 03/03/2014 10:05 AM EDT 1 drop Given 03/03/2014 10:00 AM EDT 1 drop povidone-iodine 5 % ophthalmic solution ONCE PRN, Starting on Mon03/03/14 at 1110, Until Mon03/03/14 at 1422, Irritation, Intra-Operative (Intra-Procedure), Routine Given 03/03/2014 11:10 AM EDT 2 drops prednisoLONE acetate (PRED FORTE) 1 % ophthalmic suspension 1 drop 1 drop, Right Eye, ONCE, 1 dose, On Mon03/03/14 at 1000, 1 drop to the operative eye once, start on day of surgery, Day of Surgery (Day of Procedure), Routine Given 03/03/2014 10:00 AM EDT 1 drop proparacaine (ALCAINE) 0.5 % ophthalmic solution ONCE PRN, Starting on Mon03/03/14 at 1111, Until Mon03/03/14 at 1422, Pain, Intra-Operative (Intra-Procedure), Routine Given 03/03/2014 11:11 AM EDT 2 drops sodium hyaluronate (PROVISC) ophthalmic injection ONCE PRN, Starting on Mon03/03/14 at 1111, Until Mon03/03/14 at 1422, Intra-Operative (Intra-Procedure), Routine Given 03/03/2014 11:11 AM EDT 10 mg Righ t Eye documented in this encounter Active and Recently Administered Medications Times are shown in EDT. Scheduled Medication Order 03/01/2014 03/02/2014 03/03/2014 ketorolac tromethamine (ACULAR) 0.5 % ophthalmic solution 1 drop (COMPLETED) 1 drop, Right Eye, ONCE, 1 dose, On Mon03/03/14 at 1000, 1 drop to the operative eye once, start on day of surgery, Day of Surgery (Day of Procedure), Routine 1000 (Given - Provid er: Chio Cutler RN) moxifloxacin (VIGAMOX) 0.5 % ophthalmic solution 1 drop (COMPLETED) 1 drop, Right Eye, EVERY 5 MIN, 3 doses, First dose on Mon03/03/14 at 1000, Last dose on Mon03/03/14 at 1010, 1 drop to the operative eye every 5 minutes times 3. Start on the day of surgery. , Day of Surgery (Day of Procedure), Routine 1000 (Given - Provid er: Chio Cutler RN)1005 (Given - Provider: Chio Cutler RN)1010 (Given - Provider: Chio Cutler RN) prednisoLONE acetate (PRED FORTE) 1 % ophthalmic suspension 1 drop (COMPLETED) 1 drop, Right Eye, ONCE, 1 dose, On Mon03/03/14 at 1000, 1 drop to the operative eye once, start on day of surgery, Day of Surgery (Day of Procedure), Routine 1000 (Given - Provid er: Chio Cutler RN) Continuous Medication Order 03/01/2014 03/02/2014 03/03/2014 lactated ringers infusion 1,000 mL (CANCELED) 1,000 mL, at 100 mL/hr, Intravenous, CONTINUOUS, Starting on Mon03/03/14 at 1000, Until Mon03/03/14 at 1422, Day of Surgery (Day of Procedure) 0950 (New Bag - Prov ider: Chio Cutler RN) PRN Medication Order 03/01/2014 03/02/2014 03/03/2014 balanced salt (BSS) irrigation solution (CANCELED) ONCE PRN, Starting on Mon03/03/14 at 1106, Until Mon03/03/14 at 1422, Intra-Operative (Intra-Procedure), Routine 1106 (Given - Provid er: Viky Powers MD - Comment: On sterile field for surgeons use) BUpivacaine (PF) (MARCAINE) 0.75 % (7.5 mg/mL) injection (CANCELED) ONCE PRN, Starting on Mon03/03/14 at 1107, Until Mon03/03/14 at 1422, Intra-Operative (Intra-Procedure), Routine 1107 (Given - Provid er: Viky Powers MD - Comment: 20 cc of 0.75% Bupivicaine mixed with 20 ml of 2 % lidocaqine Total 4 cc) Lidocaine (PF) (XYLOCAINE) 20 mg/mL (2 %) injection (CANCELED) ONCE PRN, Starting on Mon03/03/14 at 1108, Until Mon03/03/14 at 1422, Intra-Operative (Intra-Procedure), Routine 1108 (Canceled Entry - Provider: Viky Powers MD)1109 (Given - Provider: Viky Powers MD - Comment: 20 cc of 0.75% Bupivicaine mixed with 20 ml of 2 % lidocaqine 4 cc) midazolam (PF) (VERSED) 1 mg/mL injection 0.5-2 mg (CANCELED) 0.5-2 mg, Intravenous, EVERY 5 MIN PRN, Starting on Mon03/03/14 at 0942, Until Mon03/03/14 at 1422, Sleep, Anxiety, Hold for delirium/agitation. (Maximum dose 5 mg)., Intra-Operative (Intra-Procedure), Routine 1052 (Given - Provid er: Chio Cutler RN)1100 (Given - Provider: Chio Cutler RN)1110 (Given - Provider: Chio Cutler RN) mitoMYcin 0.4 mg/mL chemo (ophthalmic) in sodium chloride 0.9% Preservative-Free (CANCELED) ONCE PRN, Starting on Mon03/03/14 at 1109, Until Mon03/03/14 at 1422, Intra-Operative (Intra-Procedure), Routine 1109 (Given - Provid er: Viky Powers MD - Comment: On eye topical for 3 minutes) povidone-iodine 5 % ophthalmic solution (CANCELED) ONCE PRN, Starting on Mon03/03/14 at 1110, Until Mon03/03/14 at 1422, Irritation, Intra-Operative (Intra-Procedure), Routine 1110 (Given - Provid er: Sunita Edward RN - Comment: prior to prep & dressing) proparacaine (ALCAINE) 0.5 % ophthalmic solution (CANCELED) ONCE PRN, Starting on Mon03/03/14 at 1111, Until Mon03/03/14 at 1422, Pain, Intra-Operative (Intra-Procedure), Routine 1111 (Given - Provid er: Sunita Edward RN - Comment: Prior to prep & dressing) sodium hyaluronate (PROVISC) ophthalmic injection (CANCELED) ONCE PRN, Starting on Mon03/03/14 at 1111, Until Mon03/03/14 at 1422, Intra-Operative (Intra-Procedure), Routine 1111 (Given - Provid er: Viky Powers MD - Comment: On sterile field for surgeons use) documented in this encounter Care Teams Music Educator Relationship Specialty Start Date End Date Collette Garzon MD [address] [place] [address] PCP - General 05/18/10 documented as of this encounter
--- OUTSIDE RECORDS SUMMARY | 2024-07-04 09:59 | XMS_ITS | Referral Summary ---
Author Organization [facility] Address [address] [place] [address] Care Team Providers Care Belt Fixer Name Role Phone Alessio Jessica MD Primary Care Provider [phone] Social History Tobacco Use Types Packs/Day Years Used Date Smoking Tobacco: Never Assessed Comments Unknown Sex and Gender Information Value Date Recorded Sex Assigned at Not on file Legal Sex Female 18:10 EST Gender Identity Not on file Sexual Orientation Not on file Plan of Treatment Not on file Care Teams Belt Fixer Relationship Specialty Start Date End Date Alessio Jessica MD PCP - General 05/05/15
--- OUTSIDE RECORDS SUMMARY | 2024-07-04 09:59 | XMS_ITS | Encounter Summary ---
Author Organization [facility] Address [address] [place] [address] Care Team Providers Care Gas Compressor Turbine Operator Name Role Phone Alessio Jessica MD Primary Care Provider [phone] Encounter Details Date Type Department Care Team (Late st Contact Info) Description 04/06/2016 Results Only [facility] [phone] Collette Garzon MD Social History Tobacco Use Types Packs/Day Years Used Date Smoking Tobacco: Never Assessed Comments Unknown Sex and Gender Information Value Date Recorded Sex Assigned at Not on file Legal Sex Female 18:10 EST Gender Identity Not on file Sexual Orientation Not on file documented as of this encounter Plan of Treatment Not on file documented as of this encounter Procedures Procedure Name Priority Date/Time Associated Diagnosis Comments PAP TEST- RESULT ONLY Routine 04/06/2016 0:00 EDT documented in this encounter Results * PAP TEST- RESULT ONLY (04/06/2016 0:00 EDT) Pathology Report: CYTOPATHOLOGY REPORT Reports generated via electronic interface contain original data; however they are lacking the format of the original report. Caution should be taken when reading/interpret ing unformatted reports. Name: ? HANDY ULLOA ? Accession #: ? [id number] : ? 1960 (Age: 55) ??F ?Collect Date: ? 04/06/2016 Location: ? [facility] ? Receive Date: ? 04/08/2016 Provider: ?COLLETTE GARZON MD Copy to: ? Specimen/Source: ?Pap Test, Vagina, ThinPrep Imaging System with manual evaluation Last Menstrual Period: ? Hormonal/Contrace ptive Status: ? None LAUREN Exposure Treatment History: ? Hysterectomy: S/P ? SPECIMEN ADEQUACY ? Unsatisfactory for Evaluation, - insufficient numbers of squamous epithelial cells (less than 10% of expected cellularity) GENERAL CATEGORIZATION ? Specimen processed and examined, but unsatisfactory for evaluation of epithelial abnormality. ??Recommend repeat Pap test in 2-4 months as stated in ASCCP's 2012 Updated Consensus Guidelines. ? Document reviewed and electronically signed by: ? DURAN Hebert(ASCP) ? Report Date: ??04/12/2016 12:59 End of Report [facility] 04/06/2016 04/08/2016 us Collette Garzon MD PATHOLOGY ORDERABLES Final Resul t [facility] [address] [place] [address] documented in this encounter Visit Diagnoses Not on filedocumented in this encounter Care Teams Gas Compressor Turbine Operator Relationship Specialty Start Date End Date Alessio Jessica MD PCP - General 05/05/15 documented as of this encounter
--- OUTSIDE RECORDS SUMMARY | 2024-07-04 09:59 | XMS_ITS | Encounter Summary ---
Author Organization [facility] [place] [address] Care Team Providers Care Bag Repairer Name Role Phone Collette Garzon MD Primary Care Provider [phone] Reason for Visit * Reason Comments Post Op 1 day post op trab [facility] OD Encounter Details Date Type Department Care Team (Late st Contact Info) Description 03/04/2014 10:30 AM EDT [place] [address] CLINIC, Lee Christianson MD Trab [facility] OD [...] * Patient Instructions* Lee Powers MD - 03/03/2014 2:21 PM EDT Things look good 1 day following Trabeculectomy with Mitomycin-C (glaucoma filtration surgery) right eye. Keep taking the ketorolac (alonso top) and vigamox (beige top) drops 4x/day until the 1 week visit then STOP Keep taking the Prednisolone drops every 2 hours for 3 more weeks then taper as follows; 4x/day for 1 week 3x/day for 1 week 2x/day for 1 week 1x/day for 1 week Then STOP. An extra prescription with refills for more prednisolone drops has been sent to the pharmacy as thesmall bottle from the surgery center will run out in about a week Return for 1 week post surgery visit. For additional information about eye conditions, visit the Eye Facts portion of my website at [email or web address] ([employer] [email or web address]/eye-education/ and I also started a Glaucoma Patient Group on [employer] (htt [email or web address].com/groups/[email or web address]) for patients to seek help from one another. (Search for Glaucoma Patient Group and then ask to join.) documented in this encounter Progress Notes * Lee Powers MD - 03/03/2014 2:21 PM EDT Things look good 1 day following Trabeculectomy with Mitomycin-C (glaucoma filtration surgery) right eye. Keep taking the ketorolac (alonso top) and vigamox (beige top) drops 4x/day until the 1 week visit then STOP Keep taking the Prednisolone drops every 2 hours for 3 more weeks then taper as follows; 4x/day for 1 week 3x/day for 1 week 2x/day for 1 week 1x/day for 1 week Then STOP. An extra prescription with refills for more prednisolone drops has been sent to the pharmacy as thesmall bottle from the surgery center will run out in about a week Return for 1 week post surgery visit. documented in this encounter Plan of Treatment Not on file documented as of this encounter Visit Diagnoses Diagnosis Trab [facility] OD no prior surgery 03/03/2014- Primary Other states following surgery of eye and adnexa documented in this encounter Care Teams Bag Repairer Relationship Specialty Start Date End Date Collette Garzon MD [address] [place] [address] PCP - General 05/18/10 documented as of this encounter
--- OUTSIDE RECORDS SUMMARY | 2024-07-04 09:59 | XMS_ITS | Encounter Summary ---
Author Organization [facility] Address [address] [place] [address] Care Team Providers Care Cyber Ops Planner Name Role Phone Alessio Jessica MD Primary Care Provider [phone] Encounter Details Date Type Department Care Team (Late st Contact Info) Description 11/03/2020 Lab Requisition [facility] Pathology & Laboratory Medicine - [facility] [address] [place] [address] Outr Resulting Lab, Provider Social History Tobacco Use Types Packs/Day Years [...] Procedure Name Priority Date/Time Associated Diagnosis Comments LYME AB Routine 11/02/2020 14:30 EDT documented in this encounter Results * LYME AB (11/02/2020 14:30 EDT) Lyme Ab Negative Negative 11/04/2020 12:26 EDT [facility] Comment:New 3rd generation a ssay in use 12/04/2019 Blood VENOUS BLOOD / Unknown 11/02/2020 14:30 EDT 11/03/2020 16:41 EDT us Provider Outr Resulting Lab IMMUNOLOGY AND SEROL OGY ORDERABLES Final Result [facility] [address] [place] [address] documented in this encounter Visit Diagnoses Not on filedocumented in this encounter Care Teams Cyber Ops Planner Relationship Specialty Start Date End Date Alessio Jessica MD PCP - General 05/05/15 documented as of this encounter
--- OUTSIDE RECORDS SUMMARY | 2024-07-04 09:59 | XMS_ITS | Encounter Summary ---
Author Organization [facility] Address [address] [place] [address] Care Team Providers Care Music Director Name Role Phone Alessio Jessica MD Primary Care Provider [phone] Encounter Details Date Type Department Care Team (Late st Contact Info) Description 09/21/2016 Results Only [facility] [place] [phone] Collette Garzon MD Social History Tobacco Use [...] Diagnosis Comments PAP TEST- RESULT ONLY Routine 09/21/2016 0:00 EDT documented in this encounter Results * PAP TEST- RESULT ONLY (09/21/2016 0:00 EDT) Pathology Report: CYTOPATHOLOGY REPORT Reports generated via electronic interface contain original data; however they are lacking the format of the original report. Caution should be taken when reading/interpreti ng unformatted reports. Name: ? HANDY ULLOA ? Accession #: ? [id number] : ? 1960 (Age: 56) ??F ?Collect Date: ? 09/21/2016 Location: ? [facility] ? Receive Date: ? 09/22/2016 Provider: ?COLLETTE GARZON MD Copy to: ? Specimen/Source: ?Pap Test, Vagina, ThinPrep Imaging System with manual evaluation Last Menstrual Period: ? Hormonal/Contracep tive Status: ? LAUREN Exposure Treatment History: ? Hysterectomy: s/p for LAUREN exposure ? SPECIMEN ADEQUACY ? Satisfactory for Evaluation - assessment of transformation zone component not applicable ( e.g. atrophy, vaginal sample, hysterectomy) GENERAL CATEGORIZATION ? Negative for Intraepithelial Lesion or Malignancy ? Document reviewed and electronically signed by: ? Mery Seaman [facility](ASCP) ? Report Date: ??09/26/2016 14:40 End of Report [facility] 09/21/2016 09/22/2016 us Collette Garzon MD PATHOLOGY ORDERABLES Final Resul t [facility] [address] [place] [address] documented in this encounter Visit Diagnoses Not on filedocumented in this encounter Care Teams Music Director Relationship Specialty Start Date End Date Alessio Jessica MD PCP - General 05/05/15 documented as of this encounter
--- OUTSIDE RECORDS SUMMARY | 2024-07-04 09:59 | XMS_ITS | Encounter Summary ---
Author Organization [facility] [place] [address] Care Team Providers Care Polo Coach Name Role Phone Collette Garzon MD Primary Care Provider [phone] Reason for Visit * Reason Comments Glaucoma 6 mo IOP ck Encounter Details Date Type Department Care Team (Late st Contact Info) Description 08/29/2012 10:00 AM EST Follow-Up Ophthalmology at [facility] [place] [phone] Adrian Duran MD Glaucoma, open angle (Primary [...] Progress Notes * Adrian Duran MD - 08/28/2012 9:56 PM EST 10/03/11 51yo Wh F referred by Dr. Rosas ([place], [place]) for Gl eval Using Comb (2,0) and Lat (1,1) for IOP control Seen by [facility] in 08/04 Gl Dx 1999, PreRx IOP = 25 SLT OS 360 2006 > NR Alph > NR, Srinivas > NR, Cosopt > irritation + FHx Father (drops, ? surgery, ? loss of VA OS) Pachy nl 566 / 557 Hi myope (-) 13 range OCT x 1 (08/04) 106 / 90 HVF x 11 (09/25 > 2/12) OD progr sup step 10.08, nl in [...] to hi myopia) RV Fall IOP ck 11/04/11 [place] 1. Myopia OU. No lattice, no tears, no RD. 2. Glaucoma OU 3. Early cataracts OU 4. Refractive error OU Imp: Stable from retinal perspective. 08/29/12 Assess Ph OAG OD > OS in setting of hi myopia 3 meds Comb + Lat OCT thin 12 IOP (16-19) Plan Update HVF OD > dense sup arc loss 10.23 ST stability, LT progression - discussed Borderline for Trab surgery Appt w Alison 09/10 RV 6mo VF and IOP ck Trab if VF worsens in any way documented in this encounter Plan of Treatment Not on file documented as of this encounter Procedures Procedure Name Priority Date/Time Associated Diagnosis Comments AUTOMATED VISUAL FIELD - EXTENDED - OD - RIGHT EYE Routine 08/29/2012 1:08 PM EST Glaucoma, open angle documented in this encounter Results * AUTOMATED VISUAL FIELD - EXTENDED - OD - RIGHT EYE (08/29/2012 1:08 PM EST) Anatomical Region Laterality Modality Other Narrative 08/29/2012 1:08 PM EST See PN Procedure Note Adrian Duran MD - 08/29/2012 See PN Adrian Duran MD OPHTHALMOLOGY SERVI [facility] ORDERABLES documented in this encounter Visit Diagnoses Diagnosis Glaucoma, open angle- Primary Open-angle glaucoma, unspecified High myopia, both eyes Myopia documented in this encounter Care Teams Polo Coach Relationship Specialty Start Date End Date Collette Garzon MD [address] [place] [address] PCP - General 05/18/10 documented as of this encounter
--- OUTSIDE RECORDS SUMMARY | 2024-07-04 09:59 | XMS_ITS | Encounter Summary ---
Author Organization [facility] Address [facility] [place] [address] Care Team Providers Care Sales Ambassador Name Role Phone Collette Garzon MD Primary Care Provider [phone] Reason for Visit * Reason Comments Follow-up medication follow up Encounter Details Date Type Department Care Team (Late st Contact Info) Description 10/22/2013 9:45 AM EDT Office Visit Dermatology at [address] [place] [phone] Nolan Trammell MD [address], [place] [address] Irritant contact dermatitis (Primary Dx) Social History [...] Progress Notes * Nolan Trammell MD - 10/22/2013 9:55 AM EDT Problem: Eyelid dermatitis. Reena follows up and has done beautifully. The hydrocortisone valerate ointment used for about 10 days really cleared things up nicely, and then she has been using Protopic ointment on a nightly basis. She is concerned, however, about the black box warning on this and wonders if it is safe to continue. Physical examination reveals excellent healing of the erythema and irritant dermatitis, which previously emanated from the right medial canthus onto the upper and lower eyelids. There is no remaining erythema or swelling. She has no inflammation around the left eye and no dermatitis on the hands or on the rest of the face. Assessment and Plan: Irritant dermatitis related to the patient's glaucoma eye drops, controlled. a. Continue using the topicals, but I would recommend that the patient use Westcort ointment on a nightly/zwbmz-pcokb-boxvn basis for two weeks, and then switch to the Protopic ointment, using this on a nightly or aukuu-ggscg-rimmu basis before going back to another two weeks of the hydrocortisone valerate. In this way, we can minimize the potential steroidal side effects and the very low risk of chronic Protopic use around her eyes. b. The patient has plenty now but knows that if she needs refills, she can simply call and we will be happy to call in refills for her. COPY: Collette Garzon M.D. Chun Rosas M.D. documented in this encounter Plan of Treatment Not on file documented as of this encounter Visit Diagnoses Diagnosis Irritant contact dermatitis- Primary Contact dermatitis and other eczema, due to unspecified cause documented in this encounter Care Teams Sales Ambassador Relationship Specialty Start Date End Date Collette Garzon MD [address] [place] [address] PCP - General 05/18/10 documented as of this encounter
--- OUTSIDE RECORDS SUMMARY | 2024-07-04 09:59 | XMS_ITS | Encounter Summary ---
Author Organization [facility] Address [address] [place] [address] Care Team Providers Care Locks Tender Name Role Phone Unavailable Primary Care Provider Unavailabl e Encounter Details Date Type Department Care Team (Late st Contact Info) Description 09/06/2013 Results Only [facility] Laboratory Services - [facility] ([facility]) [address] [place] [phone] Collette Garzon MD Social History Tobacco Use [...] Diagnosis Comments PAP TEST- RESULT ONLY Routine 09/06/2013 0:00 EDT documented in this encounter Results * PAP TEST- RESULT ONLY (09/06/2013 0:00 EDT) Pathology Report: CYTOPATHOLOGY REPORT Reports generated via electronic interface contain original data; however they are lacking the format of the original report. Caution should be taken when reading/interpreti ng unformatted reports. Name: ? HANDY ULLOA ? Accession #: ? [id number] : ? 1960 (Age: 53) ??F ?Collect Date: ? 09/06/2013 Location: ? [facility] ? Receive Date: ? 09/10/2013 Provider: ?COLLETTE GARZON MD Copy to: ? Specimen/Source: ?Pap Test, Vagina, ThinPrep Imaging System with manual evaluation Last Menstrual Period: ? Hormonal/Contracep tive Status: ? LAUREN Exposure: h/o Treatment History: ? Hysterectomy: S/P ? SPECIMEN ADEQUACY ? Satisfactory for Evaluation - assessment of transformation zone component not applicable ( e.g. atrophy, vaginal sample, hysterectomy) GENERAL CATEGORIZATION ? Negative for Intraepithelial Lesion or Malignancy ? Document reviewed and electronically signed by: ? DURAN Comer(ASCP) ? Report Date: ??09/12/2013 16:31 End of Report [facility] 09/06/2013 09/10/2013 us Collette Garzon MD PATHOLOGY ORDERABLES Final Resul t [facility] [address] [place] [address] documented in this encounter Visit Diagnoses Not on filedocumented in this encounter
--- OUTSIDE RECORDS SUMMARY | 2024-07-04 09:59 | XMS_ITS | Encounter Summary ---
Author Organization [facility] [place] [address] Care Team Providers Care Supervisor Keymodule Assembly Name Role Phone Collette Garzon MD Primary Care Provider [phone] Encounter Details Date Type Department Care Team (Latest Contact Info) Description 03/03/2014 8:51 AM EDT - 03/03/2014 11:44 AM EDT Hospital Encounter [facility] [phone] Viky Powers MD Discharge Disposition: Home Social History Tobacco Use [...] surgery (trab, phaco/trab, tube-shunt) Vik[facility] Powers MD[facility] [phone] - Wear either the eye shield or glasses of any kind 24 hours per day for the first week following surgery. - The surgery center nurses should confirm time of your follow up appointment for tomorrow with . This appointment will be at the Eye Clinic in the main building at [facility]. - Mild discomfort is normal, but if you have any severe eye pain or bleeding call [phone] and ask to speak to the eye doctor health education director. - Call you Primary Care Doctor or [...] 5pm or on a weekend: Call the [facility] recovery operator helper and ask for the physician health education director covering for your doctor. documented in this [...] drop right eye q2h x 3weeks, then RMQu8gg, XZBf1zu, UTGk1qd, qDx1wk then STOP 10 mL 3 03/03/2014 [...] date: 03/03/2014 Attending Physician: Viky Powers MD [facility] pre-op [facility] from [place] reviewed and cleared for glaucoma surgery. * Viky Powers MD - 03/03/2014 9:30 AM EDT Patient Name: Reena Ulloa Patient Age: 53 y.o. Birthdate: 1960 Admit date: 03/03/2014 Attending Physician: Viky Powers MD Critical access [facility] pre-op [facility] from [place] reviewed and cleared for glaucoma surgery. documented in this encounter Miscellaneous Notes * Miscellaneous - Provider, Scanning - 03/03/2014 2:30 PM EDT * OR Attestation - Viky Powers MD - 03/03/2014 11:32 AM EDT Attestation: Case Date: 03/03/2014 I performed this procedure without the involvement of a resident. VIKY OPWERS MD 03/03/2014 * Op Note - Viky Powers MD - 03/03/2014 11:30 AM EDT [facility] Operative Note Patient Name: Reena Ulloa : [id number] MR#: [id number] Case Date: 03/03/2014 Surgeon: Surgeon(s) and Role: [...] MAR Action Action Date Dose Rate Site ketorolac tromethamine (ACULAR) 0.5 % ophthalmic solution [...] 9:50 AM EDT 1,000 mLs 100 mL/hr midazolam (PF) (VERSED) 1 mg/mL injection 0.5-2 mg 0.5-2 mg, Intravenous, EVERY 5 MIN PRN, Starting on Mon03/03/14 at 0942, Until Mon03/03/14 at 1422, Sleep, Anxiety, Hold for delirium/agitation. (Maximum dose 5 mg)., Intra-Operative (Intra-Procedure), Routine Given 03/03/2014 11:10 AM EDT 0.5 mg Given 03/03/2014 11:00 AM EDT 0.5 mg Given 03/03/2014 10:52 AM EDT 1 mg moxifloxacin (VIGAMOX) 0.5 % ophthalmic solution 1 [...] Given 03/03/2014 10:00 AM EDT 1 drop prednisoLONE acetate (PRED FORTE) 1 % ophthalmic suspension 1 drop 1 drop, Right Eye, ONCE, 1 dose, On Mon03/03/14 at 1000, 1 drop to the operative eye once, start on day of surgery, Day of Surgery (Day of Procedure), Routine Given 03/03/2014 10:00 AM EDT 1 drop documented in this encounter Active and Recently [...] use) documented in this encounter Care Teams Supervisor Keymodule Assembly Relationship Specialty Start Date End Date Collette Garzon MD [address] [place] [address] PCP - General 05/18/10 documented as of this encounter
--- OUTSIDE RECORDS SUMMARY | 2024-07-04 09:59 | XMS_ITS | Clinical Summary ---
Author Organization [facility] Address [address] [place] [address] Care Team Providers Care Tractor Operator Name Role Phone Alessio Jessica MD Primary Care Provider [phone] Social History Tobacco Use Types Packs/Day Years Used Date Smoking Tobacco: Never Assessed Comments Unknown Sex and Gender Information Value Date Recorded Sex Assigned at Not on file Legal Sex Female 18:10 EST Gender Identity Not on file Sexual Orientation Not on file Plan of Treatment Health Maintenance Due Date Last Done Comments Hepatitis C Screen 1960 COVID-19 Vaccine (2023- season) 2024 RSV Immunization ( o r 60+ Years) (1 - 1-dose 75+ series) 2036 Care Teams Tractor Operator Relationship Specialty Start Date End Date Alessio Jessica MD PCP - General 05/05/15
--- OUTSIDE RECORDS SUMMARY | 2024-07-04 09:59 | XMS_ITS | Encounter Summary ---
Author Organization [facility] Address [address] [place] [address] Care Team Providers Care Stamping Bench Die Maker Name Role Phone Unavailable Primary Care Provider Unavailabl e Encounter Details Date Type Department Care Team (Late st Contact Info) Description 08/07/[address] [facility] Laboratory Services - [facility] ([facility] [address] [place] [address] Collette Garzon MD Social History Tobacco [...] Diagnosis Comments PAP TEST- RESULT ONLY Routine 08/07/2012 0:00 EST documented in this encounter Results * PAP TEST- RESULT ONLY (08/07/2012 0:00 EST) Pathology Report: CYTOPATHOLOGY REPORT Reports generated via electronic interface contain original data; however they are lacking the format of the original report. Caution should be taken when reading/interpreti ng unformatted reports. Name: ? HANDY ULLOA ? Accession #: ? [id number] : ? 1960 (Age: 52) ??F ?Collect Date: ? 08/07/2012 Location: ? [facility] ? Receive Date: ? 08/08/2012 Provider: ?COLLETTE GARZON MD Copy to: ? Specimen/Source: ?Pap Test, Vagina, ThinPrep Imaging System with manual evaluation Last Menstrual Period: ? Hormonal/Contracep tive Status: ? LAUREN Exposure: in utero ? SPECIMEN ADEQUACY ? Satisfactory for Evaluation - assessment of transformation zone component not applicable ( e.g. atrophy, vaginal sample, hysterectomy) GENERAL CATEGORIZATION ? Negative for Intraepithelial Lesion or Malignancy ? Document reviewed and electronically signed by: ? DURAN Rome(ASCP) ? Report Date: ??08/10/2012 15:03 End of Report [facility] 08/07/2012 08/08/2012 us Collette Garzon MD PATHOLOGY ORDERABLES Final Resul t [facility] [address] [place] [address] documented in this encounter Visit Diagnoses Not on filedocumented in this encounter
--- OUTSIDE RECORDS SUMMARY | 2024-07-04 09:59 | XMS_ITS | Encounter Summary ---
Author Organization [facility] Address [address] [place] [address] Care Team Providers Care Production Grader Name Role Phone Alessio Jessica MD Primary Care Provider [phone] Encounter Details Date Type Department Care Team (Late st Contact Info) Description 08/27/[address] [facility] Pathology & Laboratory Medicine - [facility] [address] [place] [address] Outr Resulting Lab, Provider Social History Tobacco [...] Procedure Name Priority Date/Time Associated Diagnosis Comments ZZCOVID-19 TEST [facility] PCR Today 08/27/2020 11:00 EST COVID-19 TESTING Routine 08/27/2020 11:0 0 EST documented in this encounter Results * COVID-19 TEST [facility] PCR (08/27/2020 11:00 EST) Swab ENTIRE NASOPHARYNX / Unknown 08/27/2020 11:00 EST 08/27/2020 20:50 EST us Provider Outr Resulting Lab MICROBIOLOGY - GENER AL ORDERABLES Final Result [facility] [address] [place] [address] * COVID-19 TESTING (08/27/2020 11:00 EST) COVID-19 rt-PCR Result Negative Negative 08/28/2020 13:46 EST [facility] Comment: This test has not been FDA cleared or approved. This test has been authorized by FDA under an EUA for use by authorized laboratories. This test has been authorized only for detection of nucleic acid from 2019-nCoV, not for any other viruses or pathogens. This test is only authorized for the duration of the declaration that circumstances exist justifying the authorization of emergency use of in vitro diagnostic tests for detection and/or diagnosis of 2019-nCoV under section 564(b)(1) of Act, 21 U.S.C ?? 360bbb-3(b) (1), unless the authorization is terminated or revoked sooner. Negative results do not preclude 2019-nCoV infection and should not be used as the sole basis for treatment or other patient management decisions. Negative results must be combined with clinical observations, patient history, and epidemiological information. Testing was performed using the molly SARS-CoV-2 assay ([employer] on the Molly 6800 System Performing Lab Molly 6800 [facility] 08/28/2020 13:46 EST [facility] Swab 08/27/2020 11:0 0 EST 08/27/2020 20:50 EST us Provider Outr Resulting Lab MICROBIOLOGY - GENER AL ORDERABLES Final Result [facility] [address] [place] [address] documented in this encounter Visit Diagnoses Not on filedocumented in this encounter Care Teams Production Grader Relationship Specialty Start Date End Date Alessio Jessica MD PCP - General 05/05/15 documented as of this encounter
[2024-07-04 15:21] LABS: Calculated LDL 214 mg/dL (<100); Cholesterol 326 mg/dL (<200); HDL Cholesterol 97 mg/dL (40-60); Triglyceride 79 mg/dL (<150)
== END 2024-07-04 09:58 | disposition home or self-care (01) ==
LOC: NCHCN 09:57
PROVIDERS: PCP Family Medicine; Visit Provider Family Medicine
DX: E78.5 Hyperlipidemia, unspecified (principal)
CPT/HCPCS: 80061